=== PATIENT | female | born 1950 | race Caucasian/White ===

== ENCOUNTER 2018-02-10 09:55 | Day surgery (SDC) | payer OTHER ==
[2018-02-10] MEDS ORDERED: diphenhydrAMINE 25 MG CAP PO SCH (10:30)
[2018-02-10] MEDS ORDERED: Acetaminophen 500 MG TAB PO SCH (10:30)
[2018-02-10 13:57] LABS: Hemoglobin 9.8 g/dL (12.0-16.0)
[2018-02-10 16:57] VITALS: TEMP 98
[2018-02-10 17:00] VITALS: BP 170/72
== END 2018-02-10 17:00 | disposition home or self-care (01) ==
LOC: ONC/OP 09:55
PROVIDERS: ATTEND Internal Medicine Hematology & Oncology
DX: D64.9 Anemia, unspecified (principal); D69.6 Thrombocytopenia, unspecified; Z88.8 Allergy status to other drugs, medicaments and biological substances
CPT/HCPCS: 36430; 85014; 85018; 86850; 86900; 86901; P9016

== ENCOUNTER 2018-06-29 19:30 | Outpatient (CLI) | payer OTHER, MEDICARE | END 2018-06-29 19:31 | disposition home or self-care (01) | LOC: SLEEPLAB 19:30 | PROVIDERS: ATTEND Internal Medicine | DX: G47.10 Hypersomnia, unspecified (principal); R53.83 Other fatigue; G47.00 Insomnia, unspecified; R06.83 Snoring; I10 Essential (primary) hypertension; G47.61 Periodic limb movement disorder; R09.02 Hypoxemia; Z68.23 Body mass index [BMI] 23.0-23.9, adult | CPT/HCPCS: 95810 ==

== ENCOUNTER 2018-09-17 12:28 | Inpatient (IN) | payer MEDICARE, OTHER ==
--- NOTE | 2018-09-17 13:28 | CT ---
FCT Brain WO Con History:Fall with head injury, loss of balance Comparison: 06/23/2008 study Findings: There is generalized ventricular and sulcal prominence. There are encephalomalacia changes in the right frontal lobe. There are no signs of intracerebral hemorrhage or extra-axial fluid collec tions. The mastoid air cells are clear there is left sphenoid air cell opacification. A posterior sca lp hematoma and laceration are noted. Impression: No acute intracranial abnormalities.
--- NOTE | 2018-09-17 13:47 | CT ---
CT CERVICAL SPINE: Date: 09/17/18 PROVIDED CLINICAL HISTORY: Fall. FINDINGS: Comparison with 06/23/08. There is reversal of the normal cervical lordosis. There is no evidence for fracture or traumatic sub luxation. Advanced multilevel cervical degenerative changes are seen. No prevertebral soft tissue swe lling apparent. There is a medialized course of both common carotid arteries, with a focal area of ca lcified plaque that may produce a severe stenosis involving the distal left common carotid artery. Th e visualized lung apices appear clear. IMPRESSION: 1. No evidence for fracture or traumatic subluxation. 2. Carotid calcification including potentially severe left common carotid stenosis. Consider correla tion with nonemergent carotid ultrasound. POS: OFF
[2018-09-17 13:58] LABS: #Basophils 0.1 thou/uL (0.0-0.2); #Eosinphils 0.2 thou/uL (0.0-0.7); #Lymphocytes 1.2 thou/uL (1.20-3.40); #Monocytes 0.8 thou/uL (0.11-0.59); #Neutrophils 6.3 thou/uL (1.40-6.50); %Basophils 0.7 % (0.0-1.0); %Eosinophils 1.9 % (0.0-10.0); %Lymphocytes 14.2 % (21.0-51.0); %Monocytes 8.9 % (0.0-10.0); %Neutrophils 74.3 % (42.0-75.0); Hemoglobin 8.2 g/dL (12.0-16.0); Mean Corpuscular HGB CONC 32.7 g/dL (32.0-36.0); Mean Corpuscular Hemoglobin 29.3 pg (27.0-31.0); Mean Corpuscular Volume 89.5 fL (78.0-98.0); Mean Platelet Volume 7.1 fL (7.4-10.4); Platelet Count 288 thou/uL (130-400); RBC Distribution Width 13.2 % (11.5-14.5); Red Blood Cell (RBC) Count 2.78 mill/uL (4.20-5.40); White Blood Cell (WBC) Count 8.5 thou/uL (4.8-10.8)
[2018-09-17 14:10] LABS: Bilirubin Negative (Negative); Blood, Urine Negative (Negative); Clarity CLEAR (Clear); Glucose, Urine (Dipstick) 100 mg/dL (Negative); Leukocyte Negative (Negative); Nitrite Negative (Negative); Protein, Urine (Dipstick) 300 mg/dL (Neg-Trace); Specific Gravity, Urine 1.013 (1.002-1.036); Urobilinogen 0.2 mg/dL (0.2-1.0)
[2018-09-17 14:12] LABS: Bacteria/HPF None Seen HPF (None Seen); Hyaline Casts/LPF 4-6 HYALINE CAST LPF (0-3 Hyaline); Pathc Cast-AUWi Flag 0.81 (0-2.49); RBC/HPF 0-3 HPF (0-3); Squamous Epithelial 0-3 HPF (0-3); WBC/HPF 0-3 HPF (0-3)
[2018-09-17 14:17] LABS: ALT (SGPT) Less than 7 U/L (8-55); AST (SGOT) 10 U/L (5-34); Albumin 3.2 g/dL (3.4-4.8); Alkaline Phosphatase 107 U/L (40-150); Anion Gap 13 mmol/L (10-20); BUN (Urea Nitrogen) 54 mg/dL (9.8-20.1); Bilirubin, Total 0.3 mg/dL (0.2-1.2); Calc. Creatinine Clearance 0 mL/min (70-130); Calcium 8.9 mg/dL (7.8-10.44); Carbon Dioxide 27 mmol/L (23-31); Chloride 101 mmol/L (98-107); Estimated GFR-MDRD 14; Globulin 2.7 g/dL (2.4-3.5); Glucose 124 mg/dL (80-115); Potassium 4.5 mmol/L (3.5-5.1); Protein, Total 5.9 g/dL (6.0-8.3); Sodium 136 mmol/L (136-145)
[2018-09-17] MEDS ORDERED: Lidocaine 1% w/Epinephrine 1:100K 20 ML VIAL ONE (14:30)
[2018-09-17] MEDS ORDERED: Ondansetron ODT 4 MG TAB PO PRN (16:23)
[2018-09-17] MEDS ORDERED: Senokot S 8.6-50 MG TAB PO PRN (16:23)
[2018-09-17] MEDS ORDERED: Acetaminophen 650 MG Suppository PR PRN (16:23)
[2018-09-17] MEDS ORDERED: Acetaminophen 325 MG TAB PO PRN (16:23)
[2018-09-17] MEDS ORDERED: Adacel (T-DAP) 0.5 ML SYRINGE ONE (16:25)
[2018-09-17 17:38] LABS: Lactic Acid 0.7 mmol/L (0.5-2.2)
[2018-09-17 18:03] LABS: Thyroid Stimulating Hormone 2.7488 uIU/mL (0.35-4.94)
[2018-09-17 18:27] VITALS: BMI 22.0
--- NOTE | 2018-09-17 19:05 | ULT ---
FBILATERAL CAROTID DUPLEX ULTRASOUND: HISTORY: Syncope TECHNIQUE: Grayscale, color-flow and spectral Doppler ultrasound imaging of the extracranial carotid artery syst ems was performed bilaterally. FINDINGS: Severe plaque formation. The peak systolic velocity in the right ICA measures 135 cm/s. The peak systolic velocity in the left ICA measures 205 cm/s. Vertebral flow: Vertebral arteries are not reliably visualized for comment . IMPRESSION: Moderate (50-69%) stenosis of Both ICAs.
[2018-09-17] MEDS: Famotidine 20 MG TAB PO SCH (20:38)
[2018-09-17 21:58] LABS: Creatinine, Urine 29.74 mg/dL (47-110)
[2018-09-18 07:11] LABS: #Eosinphils 0.2 thou/uL (0.0-0.7); #Lymphocytes 1.4 thou/uL (1.20-3.40); #Monocytes 0.7 thou/uL (0.11-0.59); #Neutrophils 3.8 thou/uL (1.40-6.50); %Basophils 0.7 % (0.0-1.0); %Eosinophils 3.2 % (0.0-10.0); %Lymphocytes 22.8 % (21.0-51.0); %Monocytes 11.7 % (0.0-10.0); %Neutrophils 61.5 % (42.0-75.0); Hemoglobin 8.2 g/dL (12.0-16.0); Mean Corpuscular HGB CONC 31.9 g/dL (32.0-36.0); Mean Corpuscular Hemoglobin 28.7 pg (27.0-31.0); Mean Corpuscular Volume 89.9 fL (78.0-98.0); Mean Platelet Volume 7.5 fL (7.4-10.4); Platelet Count 289 thou/uL (130-400); Red Blood Cell (RBC) Count 2.85 mill/uL (4.20-5.40); White Blood Cell (WBC) Count 6.2 thou/uL (4.8-10.8)
[2018-09-18 07:36] LABS: Anion Gap 9 mmol/L (10-20); BUN (Urea Nitrogen) 48 mg/dL (9.8-20.1); Calc. Creatinine Clearance 16 mL/min (70-130); Calcium 8.8 mg/dL (7.8-10.44); Carbon Dioxide 29 mmol/L (23-31); Cardiac Risk 5.5 (Less than 4.5); Chloride 102 mmol/L (98-107); Cholesterol 237 mg/dl (< 200 Desired); Estimated GFR-MDRD 15; Glucose 123 mg/dL (80-115); HDL Cholesterol 43 mg/dL (>60 Neg Risk); LDL Cholesterol, Calculated 152 mg/dL; Potassium 4.1 mmol/L (3.5-5.1); Sodium 136 mmol/L (136-145); Triglycerides 212 mg/dL (Less than 150)
--- NOTE | 2018-09-18 08:21 | ULT ---
FUltrasound renal: HISTORY: Acute kidney disease superimposed on chronic kidney disease in 68-year-old female FINDINGS: Right kidney is 9 x 4 x 3.5 cm Left kidney is 12.5 x 5.5 x 5 cm. Bilateral renal parenchyma is diffusely thin. No hydronephrosis. Multiple shadowing echogenic foci sc attered in both kidneys, probably representing calculi. 1.5 x 0.5 cm probable cyst at left renal sinu s. Normal appearance of urinary bladder with bilateral ureteral jets. IMPRESSION: 1. No hydronephrosis. 2. Evidence for long-standing chronic kidney disease. 3. Evidence for probable bilateral nephrolithiasis.
[2018-09-18] MEDS ORDERED: Promethazine 25 MG TAB PO PRN (10:00)
[2018-09-18] MEDS ORDERED: Nitroglycerin 0.4 MG TAB (25 Tab Bottle) SL PRN (10:00)
[2018-09-18] MEDS: Polyethylene Glycol 3350 17 GM Packet PO SCH (10:22)
[2018-09-18] MEDS: Aspirin 81 mg Enteric Coated Tablet PO SCH (10:22)
--- NOTE | 2018-09-18 12:33 | MRI ---
FMRI of brain noncontrast: 09/18/2018 HISTORY: 68-year-old female with syncope, left hand weakness, dysarthria, and head trauma COMPARISON: No prior MRIs of the brain FINDINGS: Most of the images are degraded by patient motion. At the posterior lateral aspect of the left tempor al lobe at the temporoparietal junction, there is a subtle, approximately 2 x 2.5 cm region of mildly increased signal intensity heterogeneously on the diffusion-weighted sequence. It does not correspon d to T2 shine through on the ADC map. The FLAIR sequence, there is a subtle finding of local sulcal e ffacement in that location with slightly hyperintense signal. No associated hemorrhage in that locati on. In the contralateral right cerebral hemisphere, there is 1 moderately large or several moderate sized regions of encephalomalacia and gliosis from prior insults, which involve supra sylvian right latera l frontal lobe, posterior lateral right temporal lobe, and adjacent portion of right parietal lobe. T here is hemosiderin staining in this location representing prior hemorrhagic conversion. There is also a thin long strip of encephalomalacia and gliosis involving the right caudate nucleus. Tiny old lacunar infarcts, a few, in the bilateral basal ganglia. No obstructive hydrocephalus, mass effect, midline shift, or definite acute infarction. No acute hemo rrhage. On the FLAIR sequence, there is a thin layer of diffusely hyperintense T2 signal throughout the subdu ral spaces or involving the dura itself. IMPRESSION: 1. A subtle finding of slight signal abnormality and mild effacement of sulcal markings, at the left parieto-occipital junction brain parenchyma. Unfortunately, the patient has acute on chronic renal di sease, and gadolinium-based contrast agent probably should not be given. Etiology of this is uncertai n. Possibilities include cerebritis and neoplasm. Recommend follow-up noncontrast MRI of the brain in 3 months, or sooner if neurologic status changes. 2. One large or a few moderate sized regions of encephalomalacia and gliosis in the right cerebral he misphere consistent with old infarction in the right middle cerebral artery territory. Evidence of pr ior hemorrhagic conversion. 3. 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 4. Thin layer of circumferentially diffuse hyperintense signal throughout the supratentorial subdural spaces, or alternatively involving the entire supratentorial dura itself. Etiology is uncertain. Pos sibilities include meningitis versus very thin subdural hematoma. The recent CT was negative. Recomme nd another noncontrast CT now to be sure that this is not a newly developed thin subdural hematoma.
[2018-09-18] MEDS ORDERED: Dextrose 50% Abboject 50 ML SYRINGE SLOW IVP PRN (13:57)
[2018-09-18] MEDS ORDERED: HumaLOG 300 UNITS/3 ML VIAL SC PRN (13:57)
[2018-09-18] MEDS ORDERED: Dextrose 5% in Water 1,000 ML IV PRN (13:57)
[2018-09-18] MEDS: Furosemide 40 MG TAB PO SCH (14:29)
[2018-09-18] MEDS: HumaLOG 300 UNITS/3 ML VIAL SC PRN ×2 (14:44→17:05)
--- NOTE | 2018-09-18 15:03 | CON ---
DATE OF CONSULTATION: 09/18/2018 CONSULTING PHYSICIAN: Hospitalist Services. IMPRESSION: Syncopal episode, likely cardiogenic in origin. PLAN: Follow up with Cardiology. HISTORY OF PRESENT ILLNESS: Ms. Pacheco is a 68-year-old white female with a known history of hypertension, congestive heart failure with ejection fraction of around 16%, and a prior stroke in the right frontal region with mild left hand weakness, who presented after syncopal episode. She was witnessed to have a sudden onset of a syncope. She apparently collapsed to the floor for matter of a few seconds. She was awoken by her caregiver. There was no associated seizure activity. When she awoke, there were no focal neurologic symptoms associated with it. She denies any chest pain or shortness of breath. She does not recall any palpitations or any prodromal symptoms. She reports a distant history of a stroke, but has not had any problems in quite some time. She was admitted for further evaluation. Her CT scan of the brain showed old right frontal area of infarct. EKG shows sinus rhythm with occasional PVCs. Laboratory studies were unremarkable. PAST MEDICAL HISTORY: As listed above. ALLERGIES: MULTIPLE PER CHART. MEDICATIONS: Medication list was reviewed. SOCIAL HISTORY: No tobacco or alcohol use. REVIEW OF SYSTEMS: A 10-system review of systems is otherwise negative. PHYSICAL EXAMINATION: GENERAL: She is a well-nourished elderly lady, in no acute distress. VITAL SIGNS: Have been stable. She is afebrile. HEENT: Pupils are equal and reactive. Conjunctivae clear. Oropharynx clear. NECK: Supple. No lymphadenopathy. EXTREMITIES: No cyanosis, clubbing, or edema. NEUROLOGIC: She is alert and appropriate. Her speech is fluent and clear. Cranial nerves 2 through 12 are intact. No focal deficits were present other than diminished rapid alternating movements in the left hand. Sensation was intact to touch. SUMMARY: This is a 68-year-old woman with a known history of congestive heart failure with very poor ejection fraction, who presented with a syncopal episode. There was no associated seizure-like activity or focal neurologic symptoms. Further cardiac workup would appear appropriate. Job ID: [id number]
--- NOTE | 2018-09-18 15:14 | CT ---
FCT brain noncontrast: 09/18/2018 2:57 PM HISTORY: 68-year-old female status post head trauma. Abnormal appearance of dura noncontrast MRI of the brain. Rule out thin subdural hematoma FINDINGS: There is no evidence of subdural or epidural hematoma on this repeat CT. Again noted are the patchy, moderate sized regions of encephalomalacia and gliosis in the right cerebral hemisphere. Small old la cunar infarction of right corpora striata. Posterior upper scalp hematoma now has skin chanel. No in terval change since the CT from yesterday otherwise. IMPRESSION: 1. No acute subdural hematoma. 2. The findings on the noncontrast MRI may or may not represent a meningitis. Recommend follow-up MRI of the brain noncontrast in 3 months, or sooner if there is change in neurolo gical status. 3. Moderate sized regions of encephalomalacia and gliosis in the right cerebral hemisphere presenting old infarctions. .
--- NOTE | 2018-09-18 16:53 | PDOC.PN ---
- Subjective Encounter Start Date: 09/18/18 Encounter Start Time: 16:50 Patient lying in bed with oxygen in place. She reports feeling better today. She reports syncopal episode at home and remembers feeling dizzy, but does not remember falling down. She denies chest pain, shortness of breath, palpitations or abdominal pain. Nephrology following for acute on chronic kidney disease, vascular surgery consulted for carotid stenosis. MRI showed possible subdural hematoma, however repeat CT confirmed no subdural hematoma, but did recommend MRI in 3 months for other findings. - Objective Resuscitation Status - Order Detail: 09/17/18 16:23 Resuscitation Status Routine Co-Sign Provider: Resuscitation Status: FULL: Full Resuscitation Discussed with: Patient Additional comments: Surrogate Decision maker: Rajeev HOGUE Reviewed: Yes Vital Signs & Weight: Vital Signs (12 hours) Temp Pulse Pulse Pulse Resp BP BP 09/18/18 15:39 98.8 F 74 16 09/18/18 12:00 98.2 F 78 20 09/18/18 10:55 80 82 140/60 137/63 09/18/18 07:55 98 F 76 16 BP BP Pulse Ox 09/18/18 15:39 165/63 H 99 09/18/18 12:00 150/63 H 100 09/18/18 10:55 09/18/18 07:55 169/73 H 98 Weight Weight 128 lb 7 oz I&O: 09/17/18 09/18/18 09/19/18 06:59 06:59 06:59 Intake Total 350 Output Total 1100 Balance -750 Result Diagrams: 09/18/18 06:39 09/18/18 06:39 Additional Labs: Accuchecks 09/18/18 09/18/18 09/17/18 10:54 06:10 20:38 POC Glucose 257 H 145 H 157 H Radiology Reviewed by me: Yes Phys Exam - Physical Examination Constitutional: NAD HEENT: moist MMs, oral pharynx no lesions Neck: supple Respiratory: no wheezing, no rales Cardiovascular: RRR, no significant murmur Gastrointestinal: soft, positive bowel sounds Musculoskeletal: no edema, pulses present Neurological: non-focal, moves all 4 limbs Psychiatric: normal affect, A&O x 3 Skin: no rash, cap refill <2 seconds Dx/Plan (1) Acute on chronic systolic (congestive) heart failure Code(s): I50.23 - ACUTE ON CHRONIC SYSTOLIC (CONGESTIVE) HEART FAILURE Status : Acute (2) COPD (chronic obstructive pulmonary disease) Status: Acute (3) Syncope and collapse Code(s): R55 - SYNCOPE AND COLLAPSE Status: Acute (4) Carotid stenosis Code(s): I65.29 - OCCLUSION AND STENOSIS OF UNSPECIFIED CAROTID ARTERY Status : Acute (5) Chronic respiratory failure Code(s): J96.10 - CHRONIC RESPIRATORY FAILURE, UNSP W HYPOXIA OR HYPERCAPNIA Status: Acute (6) Chronic kidney disease (CKD) Code(s): N18.9 - CHRONIC KIDNEY DISEASE, UNSPECIFIED Status: Acute - Plan cont current plan of care, PT/OT * MRI and CT results discussed with patient along with carotid doppler results * Due to carotid stenosis, Dr Syed will be consulted * Continue medical management * Dr High believes symptoms cardiogenic in nature * Await Echo results * Possible consult to cardiology pending echo results * Continue home medications at this time * Patient transmitter engineer Dr Layton is consulted * Hold nephrotoxic meds * Repeat CBC and BMP in am * Discussed that recommendations for MRI in 3 months as outpatient
[2018-09-18] MEDS ORDERED: Non-Formulary Item 1 EACH (Insulin Detemir 100 Units/Ml [Levemir] 15 UNITS) SQ SCH (21:00)
[2018-09-18] MEDS ORDERED: Atorvastatin Calcium 40 MG TAB PO SCH (21:00)
[2018-09-18] MEDS: Famotidine 20 MG TAB PO SCH (21:09)
[2018-09-18] MEDS: Carvedilol 25 MG TAB PO SCH (21:09)
[2018-09-18] MEDS: Insulin Glargine 15 UNITS in Pre-Filled Syringe 1 EACH SC SCH (21:11)
[2018-09-18] MEDS: traMADol HCl 50 MG TAB PO PRN (21:12)
--- NOTE | 2018-09-19 01:01 | CON ---
DATE OF CONSULTATION: 09/18/2018 CONSULTING PHYSICIAN: Dr. Diaz. REASON FOR CONSULT: Acute kidney injury. REASON FOR ADMISSION: Syncope. HISTORY OF PRESENT ILLNESS: A 68-year-old female with a history of chronic kidney disease followed with Dr. Layton, type 2 diabetes, COPD, congestive heart failure, came to the hospital with dizziness and found to have syncope and carotid stenosis. The patient has had neurological and cardiovascular evaluation. The patient does have CKD stage 4, was found to have elevated creatinine of 3.3, on admission 3.1. The patient also has been having swelling and she was recently discharged from the [facility]. No fever or chills. No nausea or vomiting. No diarrhea. No chest pain or palpitation. PAST MEDICAL HISTORY: Positive for CKD, congestive heart failure, type 2 diabetes, COPD. PAST SURGICAL HISTORY: No surgeries. HOME MEDICATIONS: Include, 1. Amlodipine. 2. Atorvastatin. 3. Furosemide. 4. Levothyroxine. 5. Lisinopril. 6. Tramadol. 7. Cholecalciferol. ALLERGIES: TO ALBUMIN, DIAZEPAM, OXYCODONE, SIMVASTATIN. SOCIAL HISTORY: No smoking, alcohol, or illicit drug abuse. FAMILY HISTORY: No history of kidney disease. REVIEW OF SYSTEMS: CONSTITUTIONAL: Negative for weight loss or gain, ability to conduct usual activities. SKIN: Negative for rash, itching. EYES: Negative for double vision, pain. ENT/MOUTH: Negative for nose bleeding, neck stiffness, pain, tenderness. CARDIOVASCULAR: Negative for palpitations, dyspnea on exertion, orthopnea. RESPIRATORY: Negative for shortness of breath, wheezing, cough, hemoptysis, fever or night sweats. GASTROINTESTINAL: Negative for poor appetite, abdominal pain, heartburn, nausea, vomiting, constipation, or diarrhea. GENITOURINARY: Negative for urgency, frequency, dysuria, nocturia. MUSCULOSKELETAL: Negative for pain, swelling. NEUROLOGIC/PSYCHIATRIC: Negative for anxiety, depression. ALLERGY/IMMUNOLOGIC: Negative for skin rash, bleeding tendency. PHYSICAL EXAMINATION: GENERAL: This is a well-built female in no apparent distress. VITAL SIGNS: Temperature 98.8, pulse 74, respirations 16, blood pressure 150/60. HEENT: Atraumatic and normocephalic. Oral mucosa is moist. NECK: Supple. CV: S1 and S2. Rate and rhythm regular. RESPIRATORY: Clear. GASTROINTESTINAL: Abdomen is soft. MUSCULOSKELETAL: 1+ edema. DERMATOLOGIC: No skin rash. Neurologic: Alert and awake. PSYCHIATRIC: Normal mood and affect. LABORATORY DATA: Potassium 4.8, BUN is 48, creatinine is 3.1, hemoglobin is 8.2. ASSESSMENT AND PLAN: 1. Acute kidney injury on chronic kidney stage 4, seems slightly better. The patient on Lasix at home and currently on Lasix here. Cautious use of Lasix and monitor renal function closely. No acute indication for dialysis. 2. Anemia of chronic disease. We will check iron studies and if adequate, we will give Epogen. 3. Vitamin D deficiency. Recommend vitamin D. Secondary hyperparathyroidism. Consider calcitriol in the future. We will recommend vitamin D for now. 4. Edema, controlled. 5. Hypertension, stable. 6. Proteinuria. 7. History of diabetes. 8. Acute indication for dialysis might need in the near future. We will continue to monitor. Continue Lasix. The patient is making urine and fluid status is controlled. We will continue to follow. Avoid nephrotoxins. Continue close monitoring. Thank you for the consult. Job ID: [id number]
--- NOTE | 2018-09-19 01:22 | CON ---
DATE OF CONSULTATION: HISTORY OF PRESENT ILLNESS: This is a 68-year-old female who was seen previously for severe peripheral vascular disease. She states that she was at home by herself where she experienced severe dizziness, but states she did not lose consciousness. She felt badly and was brought to the hospital. She has had fairly extensive workup here which included an MRI of the brain and CT of the brain, both showing old right hemispheric infarct. Carotid ultrasound showing peak systolic velocity on the left of 204 cm/second. She evidently has severe cardiomyopathy with an ejection fraction of less than 20%, for which she sees Dr. Teixeira. She was previously noted to have inoperable coronary artery disease in 2007 with a 15% ejection fraction and severe mitral regurgitation. PAST MEDICAL HISTORY: Includes diabetes mellitus, hypertension, dyslipidemia, chronic kidney disease, and a long smoking history until about 3 years ago. PAST SURGICAL HISTORY: Includes a right common femoral endarterectomy and stenting of her distal aorta by myself in 2017 for severe ulcerations in her right leg. During that time, she was evaluated and found to have a 90% stenosis at the origin of the innominate artery and what was felt to be a 90% string sign of the left internal carotid artery and a 30% right carotid stenosis. PHYSICAL EXAMINATION: GENERAL: She is an elderly, ill-appearing lady, in no distress. NECK: Bilateral carotid bruits. CARDIAC: Regular rate and rhythm with a systolic murmur at the right upper sternal border and clear lung larson anteriorly. ABDOMEN: Soft and nontender. EXTREMITIES: She has a palpable right femoral pulse and no other palpable pulses in her lower extremities. IMPRESSION: At this time, previous evaluation has shown a string sign of the left external carotid artery, which was felt to be inoperable lesion. The ultrasound at this time is suggestive of less than 70% stenosis. However, we do have documentation of a much greater stenosis, although once again, inoperable. I have recommended no intervention at this time, and she is already on medical management, being followed by Dr. Teixeira. She has done surprisingly well with inoperable coronary artery disease and ejection fraction less than 20% diagnosed 12 years ago. Job ID: [id number]
[2018-09-19 06:24] LABS: Iron 28 ug/dL (50-170); Iron Binding Capacity, Total 180 mcg/dL (265-497)
[2018-09-19] MEDS ORDERED: Atorvastatin Calcium 40 MG TAB PO SCH (07:38)
[2018-09-19 08:06] LABS: #Eosinphils 0.2 thou/uL (0.0-0.7); #Lymphocytes 1.3 thou/uL (1.20-3.40); #Monocytes 0.6 thou/uL (0.11-0.59); #Neutrophils 3.7 thou/uL (1.40-6.50); %Basophils 0.5 % (0.0-1.0); %Eosinophils 3.4 % (0.0-10.0); %Lymphocytes 22.1 % (21.0-51.0); %Monocytes 10.6 % (0.0-10.0); %Neutrophils 63.4 % (42.0-75.0); Hemoglobin 7.4 g/dL (12.0-16.0); Mean Corpuscular HGB CONC 32.8 g/dL (32.0-36.0); Mean Corpuscular Hemoglobin 28.8 pg (27.0-31.0); Mean Corpuscular Volume 87.9 fL (78.0-98.0); Mean Platelet Volume 7.3 fL (7.4-10.4); Platelet Count 265 thou/uL (130-400); RBC Distribution Width 12.9 % (11.5-14.5); Red Blood Cell (RBC) Count 2.58 mill/uL (4.20-5.40); White Blood Cell (WBC) Count 5.8 thou/uL (4.8-10.8)
[2018-09-19 08:13] LABS: Hemoglobin A1c 5.1 % (4.0-6.0)
[2018-09-19 08:36] LABS: Anion Gap 12 mmol/L (10-20); BUN (Urea Nitrogen) 48 mg/dL (9.8-20.1); Calc. Creatinine Clearance 15 mL/min (70-130); Calcium 8.5 mg/dL (7.8-10.44); Carbon Dioxide 25 mmol/L (23-31); Chloride 105 mmol/L (98-107); Estimated GFR-MDRD 14; Glucose 114 mg/dL (80-115); Potassium 4.5 mmol/L (3.5-5.1); Sodium 137 mmol/L (136-145)
[2018-09-19] MEDS: Insulin Glargine 15 UNITS in Pre-Filled Syringe 1 EACH SC SCH ×2 (09:38→21:28)
[2018-09-19] MEDS: Fenofibrate 48 MG TAB PO SCH (09:39)
[2018-09-19] MEDS: Carvedilol 25 MG TAB PO SCH ×2 (09:40→21:25)
[2018-09-19] MEDS: Aspirin 81 mg Enteric Coated Tablet PO SCH (09:40)
[2018-09-19] MEDS: Furosemide 40 MG TAB PO SCH ×2 (09:40→14:52)
[2018-09-19] MEDS: Amlodipine 10 MG TAB PO SCH (09:40)
[2018-09-19] MEDS: Polyethylene Glycol 3350 17 GM Packet PO SCH (09:42)
[2018-09-19] MEDS ORDERED: EPOETIN ALFA-EPBX (ESRD) 10,000 UNIT/ML VIAL SC SCH (12:00)
--- NOTE | 2018-09-19 13:20 | PRG ---
DATE OF SERVICE: 09/19/2018 SUBJECTIVE: Patient was seen and examined at bedside and overnight events noted. Patient denies any shortness of breath or chest pain or palpitation. No history of nausea or vomiting or diarrhea or fever or chills or cramps. OBJECTIVE: GENERAL: This is a well-build female, in no apparent distress. VITAL SIGNS: Temperature 99.0. Heart rate 70. Respiratory rate 16. Blood pressure 119/57. HEENT: Atraumatic, normocephalic. Oral mucosa is moist NECK: Supple. CARDIOVASCULAR: S1, S2 heard. Rate and rhythm regular. RESPIRATORY: Clear to auscultation. GASTROINTESTINAL: Abdomen is soft. MUSCULOSKELETAL: No tenderness. No edema. DERMATOLOGIC: No skin rash. NEUROLOGIC: Alert and awake and oriented X3. No focal neurologic deficits. Moving all the extremities. PSYCHIATRIC: Mood and affect normal. LABORATORY DATA: Hemoglobin is 7.4, potassium is 4.5, BUN is 48, creatinine is 3.2. ASSESSMENT AND PLAN: 1. Chronic kidney stage 5. No acute indication for dialysis. Monitor nephrotoxins and closely monitor. 2. Anemia of chronic disease with iron deficiency. We will add iron pills and give one dose of Epogen. 3. Vitamin D deficiency. Continue on vitamin D, secondary to hyperparathyroidism. 4. Edema, controlled. 5. Hypertension, stable. 6. Proteinuria. 7. Diabetes. 8. No acute indication for dialysis, would need in the near future. The patient does not want to start planning for dialysis at this point. We will continue close monitoring. Avoid nephrotoxins. Job ID: [id number]
--- NOTE | 2018-09-19 15:46 | PDOC.PN ---
- Subjective Encounter Start Date: 09/19/18 Encounter Start Time: 15:41 Patient lying in bed, she reports feeling better. She denies chest pain, palpitations, shortness of breath or abdominal pain. Nephrology following and determined no indications for dialysis at this time. - Objective Resuscitation Status - Order Detail: 09/17/18 16:23 Resuscitation Status Routine Co-Sign Provider: Resuscitation Status: FULL: Full Resuscitation Discussed with: Patient Additional comments: Surrogate Decision maker: Rajeev HOGUE Reviewed: Yes Vital Signs & Weight: Vital Signs (12 hours) Temp Pulse Resp BP BP BP Pulse Ox 09/19/18 11:38 98.5 F 70 16 121/58 L 93 L 09/19/18 09:40 73 129/59 L 09/19/18 08:00 94 L 09/19/18 07:48 98 F 70 16 119/57 L 94 L 09/19/18 04:16 98.2 F 75 16 167/70 H 99 Weight Weight 128 lb 7 oz I&O: 09/18/18 09/19/18 09/20/18 06:59 06:59 06:59 Intake Total 350 1440 600 Output Total 1100 1050 900 Balance -750 390 -300 Result Diagrams: 09/19/18 07:40 09/19/18 07:40 Additional Labs: Accuchecks 09/19/18 09/19/18 09/18/18 10:40 05:54 21:03 POC Glucose 114 H 137 H 208 H 09/18/18 16:41 POC Glucose 256 H Radiology Reviewed by me: Yes Phys Exam - Physical Examination Constitutional: NAD HEENT: moist MMs, oral pharynx no lesions Neck: no nodes, supple Respiratory: no wheezing, clear to auscultation bilateral Cardiovascular: RRR, no significant murmur Gastrointestinal: soft, positive bowel sounds Musculoskeletal: no edema, pulses present Neurological: non-focal, moves all 4 limbs Psychiatric: normal affect, A&O x 3 Skin: no rash, cap refill <2 seconds Dx/Plan (1) Acute on chronic systolic (congestive) heart failure Code(s): I50.23 - ACUTE ON CHRONIC SYSTOLIC (CONGESTIVE) HEART FAILURE Status : Acute (2) COPD (chronic obstructive pulmonary disease) Status: Acute (3) Syncope and collapse Code(s): R55 - SYNCOPE AND COLLAPSE Status: Acute (4) Carotid stenosis Code(s): I65.29 - OCCLUSION AND STENOSIS OF UNSPECIFIED CAROTID ARTERY Status : Acute (5) Chronic respiratory failure Code(s): J96.10 - CHRONIC RESPIRATORY FAILURE, UNSP W HYPOXIA OR HYPERCAPNIA Status: Acute (6) Chronic kidney disease (CKD) Code(s): N18.9 - CHRONIC KIDNEY DISEASE, UNSPECIFIED Status: Acute - Plan cont current plan of care * Continue with medical management, Statin increased * Nephrology following and recommend monitoring BMP, no indications for HD at this time * Continue supplementation for iron and vitamin D * Added Tricor * Continue other home medications, hold nephrotoxins * Patient not a surgical candidate for carotid stenosis
[2018-09-19] MEDS: HumaLOG 300 UNITS/3 ML VIAL SC PRN (17:46)
[2018-09-19] MEDS: Famotidine 20 MG TAB PO SCH (21:25)
[2018-09-19] MEDS: Atorvastatin Calcium 40 MG TAB PO SCH (21:25)
[2018-09-19] MEDS: traMADol HCl 50 MG TAB PO PRN (21:26)
[2018-09-20 06:35] LABS: #Eosinphils 0.2 thou/uL (0.0-0.7); #Lymphocytes 1.5 thou/uL (1.20-3.40); #Monocytes 0.6 thou/uL (0.11-0.59); #Neutrophils 4.1 thou/uL (1.40-6.50); %Basophils 0.4 % (0.0-1.0); %Eosinophils 3.2 % (0.0-10.0); %Lymphocytes 22.7 % (21.0-51.0); %Neutrophils 63.8 % (42.0-75.0); Hemoglobin 7.8 g/dL (12.0-16.0); Mean Corpuscular HGB CONC 31.6 g/dL (32.0-36.0); Mean Corpuscular Hemoglobin 28.5 pg (27.0-31.0); Mean Platelet Volume 7.3 fL (7.4-10.4); Platelet Count 279 thou/uL (130-400); RBC Distribution Width 13.2 % (11.5-14.5); Red Blood Cell (RBC) Count 2.75 mill/uL (4.20-5.40); White Blood Cell (WBC) Count 6.5 thou/uL (4.8-10.8)
[2018-09-20 06:52] LABS: Anion Gap 10 mmol/L (10-20); BUN (Urea Nitrogen) 47 mg/dL (9.8-20.1); Calc. Creatinine Clearance 14 mL/min (70-130); Calcium 8.9 mg/dL (7.8-10.44); Carbon Dioxide 27 mmol/L (23-31); Chloride 106 mmol/L (98-107); Estimated GFR-MDRD 13; Glucose 83 mg/dL (80-115); Potassium 4.7 mmol/L (3.5-5.1); Sodium 138 mmol/L (136-145)
--- NOTE | 2018-09-20 07:24 | HP ---
CHIEF COMPLAINT: Fainting episode with head injury. HISTORY OF PRESENT ILLNESS: Ms. Pacheco is a 68-year-old woman, presenting to the ER after having a syncopal episode. The patient states she was sitting at her dining room table, stood up, and recalls falling. She denies any loss of consciousness. Denies having any preceding symptoms such as dizziness, chest pain, or headaches. Denies experiencing any shortness of breath. She banged the back of her head on the dining room table. She sustained a laceration to the occipital region with no bony deformity or skull fractures noted on CT head. No intracranial hemorrhage or abnormalities. She has had 5 chanel placed. She continues to deny any headaches or feeling unwell. She states she has been in her usual state of health, though she has been battling with decreased oral intake for the last couple of months. She also suffers from constipation. She states both are being managed with medications and she is under the care of Dr. Puente at the [facility], who she saw recently. The patient reports having history of a stroke in the past and has residual weakness and contractures of the left forefinger. She also has residual facial droop, but otherwise has no residual abnormalities or neuro deficits. Denies having any weakness or numbness on either side of her body. Denies having any speech changes or vision disturbances. No slurred speech. Again, at this time she feels well in herself and is without complaints. REVIEW OF SYSTEMS: The patient denies having any recent fevers, chills, or sweats. Denies having any cough or hemoptysis. Denies any abdominal pain or cramping. She last moved her bowels yesterday. Denies any abdominal pain. No urinary symptoms such as dysuria, hematuria, but does report urinary frequency, which is chronic. Denies having any chest pain. All other review of systems are negative. PAST MEDICAL HISTORY: 1. CHF. 2. Coronary artery disease. 3. COPD. 4. CKD. 5. Hypertension. 6. Hyperlipidemia. 7. Type 2 diabetes. 8. History of stroke in 2008. 9. Last carotid Doppler done in November 2014 showed greater than 70% stenosis of the left ICA and less than 50% stenosis of the right ICA with increased ECA velocity on the left. Cardiac catheterization, November 2014, showed moderate left ventricular function with an EF of 35% to 40%, mitral regurgitation and diffuse severe three-vessel coronary artery disease. 10. The patient consulted for CABG in the past; however, due to diffuse atherosclerotic disease of aorta and bilateral carotid stenosis, felt to be too high risk for surgery. Stenting was discussed at that time. 11. Hypothyroidism. PAST SURGICAL HISTORY: None. ALLERGIES: VALIUM, OXYCODONE, PNEUMOCOCCAL VACCINE, HUMAN ALBUMIN, AND DIAZEPAM. CURRENT MEDICATIONS: 1. Amlodipine. 2. Atorvastatin. 3. Furosemide. 4. Levothyroxine. 5. Lisinopril. 6. Tramadol. 7. Cholecalciferol. PHYSICAL EXAMINATION: GENERAL: The patient appears well developed, thin, and in no acute distress. HEENT: Wound to occipital region with [address] No active bleeding. Pupils are equal, round, and reactive to light. Extraocular movements normal without any nystagmus. Oropharynx is clear. NECK: Supple. No lymphadenopathy. No tenderness to the cervical region. LUNGS: Clear to auscultation bilaterally without any wheezing or crackles. CARDIAC: Regular rate and rhythm. ABDOMEN: Obese, nontender, nondistended, soft. No guarding or rigidity. No renal angle tenderness. EXTREMITIES: Notable for old bruising to the posterior left thigh. The patient states she bruises easily due to being on Plavix. No edema present. No calf tenderness. MUSCULOSKELETAL: No tenderness in the cervical, thoracic, or lumbar spine. Power 5/5 in all limbs. Contracture of the left 4th finger. Able to extend finger with assistance, but remains in flexed position at baseline. NEUROLOGIC: Alert and oriented x3. Facial movements normal. No slurred speech. No tongue deviation. No focal deficits. SKIN: Without rash or jaundice. LABORATORY DATA: White blood count 8.5, hemoglobin 8.2, hematocrit 24.9, platelets 288. Sodium 136, potassium 4.5, chloride 101, carbon dioxide 27, anion gap 13, BUN 54 which is elevated from 31 three years ago. Creatinine 3.38, also elevated from previous creatinine 4 years ago at which time it was 1.68. GFR 14, in 2015 it was 33. Total bilirubin 0.3. Recently, she had iron studies done with an iron level of 42, TIBC of 210, percent saturation of 20, ferritin of 155.28. LFTs done today are unremarkable. Troponin elevated at 0.072. Serum protein 5.9, albumin 3.2, globulin 3.7. IMAGING DATA: 1. CT brain. Encephalomalacia changes in the right frontal lobe noted. No intracranial hemorrhage or abnormalities. Posterior scalp hematoma and laceration noted. 2. Cervical spine CT. No evidence of fracture or traumatic subluxation. Advanced multilevel cervical degenerative changes present. Carotid calcification including potentially severe left common carotid stenosis. Advised to consider nonemergent carotid ultrasound. IMPRESSION AND PLAN: Ms. Pacheco is a 68-year-old woman, who is being admitted after having a syncopal episode with subsequent head injury and laceration to the posterior head. She is being admitted for management of the following; Suspected transient ischemic attack/cerebrovascular accident. The patient states she has a history of a stroke. Previously noted to have severe stenosis on the left ICA and right. Had felt to be a poor candidate for surgery due to underlying coronary artery disease. CT head shows no acute intracranial abnormalities. CT of the neck has shown changes concerning for severe left ICA stenosis. We will request an MRI of the brain and repeat carotid Dopplers as it has been several years from the last workup. The patient also with a history of CHF, but no signs of fluid overload or decompensation. We will check BNP and an echo. The patient denies any chest pain, but does have . Job ID: [id number]
[2018-09-20] MEDS: Fenofibrate 48 MG TAB PO SCH (08:55)
[2018-09-20] MEDS: Aspirin 81 mg Enteric Coated Tablet PO SCH (08:55)
[2018-09-20] MEDS: Polyethylene Glycol 3350 17 GM Packet PO SCH (08:55)
[2018-09-20] MEDS: Amlodipine 10 MG TAB PO SCH (08:56)
[2018-09-20] MEDS: Carvedilol 25 MG TAB PO SCH ×2 (08:56→21:07)
[2018-09-20] MEDS: Ferrous Gluconate 324 MG TAB PO SCH (08:56)
[2018-09-20] MEDS: Furosemide 40 MG TAB PO SCH ×2 (08:56→13:43)
[2018-09-20] MEDS: Insulin Glargine 15 UNITS in Pre-Filled Syringe 1 EACH SC SCH ×2 (08:57→21:07)
[2018-09-20] MEDS: HumaLOG 300 UNITS/3 ML VIAL SC PRN (11:17)
--- NOTE | 2018-09-20 15:18 | PDOC.PN ---
- Subjective Encounter Start Date: 09/20/18 Encounter Start Time: 10:30 Subjective: pt up in bed no complains - Objective Resuscitation Status - Order Detail: 09/17/18 16:23 Resuscitation Status Routine Co-Sign Provider: Resuscitation Status: FULL: Full Resuscitation Discussed with: Patient Additional comments: Surrogate Decision maker: Rajeev Chaidez Vital Signs & Weight: Vital Signs (12 hours) Temp Pulse Resp BP Pulse Ox 09/20/18 11:34 98.5 F 70 16 109/57 L 97 09/20/18 08:56 75 09/20/18 07:41 98.4 F 75 16 148/67 H 98 09/20/18 03:43 98 F 68 16 134/62 93 L Weight Weight 128 lb 7 oz I&O: 09/19/18 09/20/18 09/21/18 06:59 06:59 06:59 Intake Total 1440 900 480 Output Total 1050 900 Balance 390 0 480 Result Diagrams: 09/20/18 06:09 09/20/18 06:09 Additional Labs: Accuchecks 09/20/18 09/20/18 09/19/18 10:45 05:29 20:29 POC Glucose 170 H 90 199 H 09/19/18 16:57 POC Glucose 227 H Phys Exam - Physical Examination Neck: no nodes, no JVD, supple, full ROM Respiratory: no wheezing, no rales, no rhonchi, wheezing present, clear to auscultation bilateral Cardiovascular: RRR, no significant murmur, no rub, gallop, irregular Gastrointestinal: soft, non-tender, no distention, positive bowel sounds Musculoskeletal: no edema, pulses present, edema present Dx/Plan (1) Syncope and collapse Code(s): R55 - SYNCOPE AND COLLAPSE Status: Acute (2) Chronic kidney disease (CKD) Code(s): N18.9 - CHRONIC KIDNEY DISEASE, UNSPECIFIED Status: Acute (3) Uncontrolled diabetes mellitus Code(s): E11.65 - TYPE 2 DIABETES MELLITUS WITH HYPERGLYCEMIA Status: Acute (4) Hyperlipidemia Code(s): E78.5 - HYPERLIPIDEMIA, UNSPECIFIED Status: Acute - Plan pt's creatinine is trending up, will continue to monitor -: no intervention per cv surgery, pt's ef has improved -: will hold lasix. * . Review of Systems - Review of Systems Respiratory: negative: Cough, Dry, Shortness of Breath, Hemoptysis, SOB with Excertion, Pleuritic Pain, Sputum, Wheezing Gastrointestinal: negative: Nausea, Vomiting, Abdominal Pain, Diarrhea, Constipation, Melena, Hematochezia, Other Genitourinary: negative: Dysuria, Frequency, Incontinence, Hematuria, Retention , Other - Medications/Allergies Allergies/Adverse Reactions: Allergies Allergy/AdvReac Type Severity Reaction Status Date / Time albumin human Allergy Severe Rash Verified 09/17/18 18:31 [From Albuminar 25 %] pneumococcal vaccine Allergy Severe Rash Verified 09/17/18 18:31 diazepam [From Valium] AdvReac Severe prolonged Verified 09/17/18 18:31 sedation oxycodone AdvReac Severe hallucinati Verified 09/17/18 18:31 ons pregabalin [From Lyrica] AdvReac Severe hallucinati Verified 09/17/18 18:31 ons simvastatin AdvReac Severe stomach Verified 09/17/18 18:31 cramps neurontin Allergy Uncoded 09/17/18 18:31 Medications: Current Medications Acetaminophen (Tylenol) 650 mg NM Q4H PRN PRN Reason: Headache/Fever/Mild Pain (1-3) Amlodipine Besylate (Norvasc) 10 mg PO DAILY [facility] Last Admin: 09/20/18 08:56 Dose: 10 mg Aspirin (Ecotrin) 81 mg PO DAILY [facility] Last Admin: 09/20/18 08:55 Dose: 81 mg Atorvastatin Calcium (Lipitor) 80 mg PO [facility] Last Admin: 09/19/18 21:25 Dose: 80 mg Carvedilol (Coreg) 25 mg PO BID [facility] Last Admin: 09/20/18 08:56 Dose: 25 mg Cholecalciferol (Vitamin D3) 5,000 units PO HS [facility] Last Admin: 09/19/18 21:25 Dose: 5,000 units Dextrose/Water (Dextrose 50%) 25 gm SLOW IVP PRN PRN PRN Reason: Hypoglycemia Famotidine (Pepcid) 20 mg PO QPM [facility] Last Admin: 09/19/18 21:25 Dose: 20 mg Fenofibrate (Tricor) 48 mg PO DAILY [facility] Last Admin: 09/20/18 08:55 Dose: 48 mg Ferrous Gluconate (Fergon) 324 mg PO QA-[facility] Last Admin: 09/20/18 08:56 Dose: 324 mg Glucagon (Glucagon) 1 mg IM PRN PRN PRN Reason: Hypoglycemia Insulin Glargine 15 units/ (Miscellaneous Medication) 0.15 mls @ 0 mls/hr SC BID [facility] Last Admin: 09/20/18 08:57 Dose: 0.15 mls Dextrose/Water (D5w) 1,000 mls @ 0 mls/hr IV .Q0M PRN PRN Reason: Hypoglycemia Insulin Human Lispro (Humalog) 0 units SC .MILD SLIDING SCALE PRN PRN Reason: Mild Correctional Scale Last Admin: 09/20/18 11:17 Dose: 2 unit Insulin Human Lispro (Humalog) 0 units SC .BEDTIME SLIDING SC PRN PRN Reason: Bedtime Correctional Scale Isosorbide Mononitrate (Imdur Er) 30 mg PO BID [facility] Last Admin: 09/20/18 08:55 Dose: 30 mg Nitroglycerin (Nitrostat) 0.4 mg SL Q5MIN PRN PRN Reason: Chest Pain Ondansetron HCl (Zofran Odt) 4 mg PO Q6H PRN PRN Reason: Nausea/Vomiting (Ticagrelor [ (Brilinta] 60 Mg)) 0 each PO BID [facility] Last Admin: 09/20/18 08:56 Dose: 1 each Polyethylene Glycol (Miralax) 17 gm PO DAILY [facility] Last Admin: 09/20/18 08:55 Dose: 17 gm Promethazine HCl (Phenergan) 25 mg PO Q8HR PRN PRN Reason: Nausea Ranolazine (Ranexa) 1,000 mg PO BID [facility] Last Admin: 09/20/18 08:55 Dose: 1,000 mg Senna/Docusate Sodium (Senokot S) 2 tab PO BID PRN PRN Reason: Constipation Sodium Chloride (Flush - Normal Saline) 10 ml IVF Q12HR PRN PRN Reason: Saline Flush Last Admin: 09/19/18 21:28 Dose: 10 ml Sodium Chloride (Flush - Normal Saline) 10 ml IVF PRN PRN PRN Reason: Saline Flush Tramadol HCl (Ultram) 100 mg PO BIDPRN PRN PRN Reason: Moderate to Severe Pain (6-10) Last Admin: 09/19/18 21:26 Dose: 100 mg
--- NOTE | 2018-09-20 16:02 | PRG ---
DATE OF SERVICE: 09/20/2018 SUBJECTIVE: Patient was seen and examined at bedside and overnight events noted. Patient denies any shortness of breath or chest pain or palpitation. No history of nausea or vomiting or diarrhea or fever or chills or cramps. OBJECTIVE: GENERAL: This is an elderly female, in no acute distress. VITAL SIGNS: Temperature 98.5, pulse 75, respiratory rate 16, blood pressure 109/57. HEENT: Atraumatic, normocephalic. Oral mucosa is moist NECK: Supple. CARDIOVASCULAR: S1, S2 heard. Rate and rhythm regular. RESPIRATORY: Clear to auscultation. GASTROINTESTINAL: Abdomen is soft. MUSCULOSKELETAL: No tenderness. No edema. DERMATOLOGIC: No skin rash. NEUROLOGIC: Alert and awake and oriented X3. No focal neurologic deficits. Moving all the extremities. PSYCHIATRIC: Mood and affect normal. LABORATORY DATA: Potassium is 4.7, BUN is 47, creatinine is 3.5 ASSESSMENT AND PLAN: 1. Chronic kidney disease stage 5, stable. No acute indication for dialysis. Will need close monitoring as outpatient. 2. Anemia of chronic disease. 3. Vitamin D deficiency. 4. Edema. 5. Hypertension. 6. Proteinuria. 7. Diabetes. No acute indication for dialysis. Need to also follow up as an outpatient. Job ID: [id number]
[2018-09-20] MEDS: Famotidine 20 MG TAB PO SCH (21:06)
[2018-09-20] MEDS: Atorvastatin Calcium 40 MG TAB PO SCH (22:46)
[2018-09-21] MEDS: traMADol HCl 50 MG TAB PO PRN ×2 (04:41→22:44)
[2018-09-21 06:03] LABS: #Eosinphils 0.2 thou/uL (0.0-0.7); #Lymphocytes 1.6 thou/uL (1.20-3.40); #Monocytes 0.7 thou/uL (0.11-0.59); #Neutrophils 4.8 thou/uL (1.40-6.50); %Basophils 0.5 % (0.0-1.0); %Eosinophils 2.7 % (0.0-10.0); %Lymphocytes 21.7 % (21.0-51.0); %Monocytes 10.2 % (0.0-10.0); Hemoglobin 7.7 g/dL (12.0-16.0); Mean Corpuscular HGB CONC 32.5 g/dL (32.0-36.0); Mean Corpuscular Hemoglobin 29.4 pg (27.0-31.0); Mean Corpuscular Volume 90.2 fL (78.0-98.0); Mean Platelet Volume 7.5 fL (7.4-10.4); Platelet Count 269 thou/uL (130-400); RBC Distribution Width 13.2 % (11.5-14.5); Red Blood Cell (RBC) Count 2.63 mill/uL (4.20-5.40); White Blood Cell (WBC) Count 7.3 thou/uL (4.8-10.8)
[2018-09-21 06:17] LABS: Anion Gap 13 mmol/L (10-20); BUN (Urea Nitrogen) 51 mg/dL (9.8-20.1); Calc. Creatinine Clearance 14 mL/min (70-130); Calcium 8.9 mg/dL (7.8-10.44); Carbon Dioxide 25 mmol/L (23-31); Chloride 103 mmol/L (98-107); Estimated GFR-MDRD 13; Glucose 73 mg/dL (80-115); Potassium 4.8 mmol/L (3.5-5.1); Sodium 136 mmol/L (136-145)
[2018-09-21] MEDS: Polyethylene Glycol 3350 17 GM Packet PO SCH (09:28)
[2018-09-21] MEDS: Fenofibrate 48 MG TAB PO SCH (09:29)
[2018-09-21] MEDS: Amlodipine 10 MG TAB PO SCH (09:30)
[2018-09-21] MEDS: Carvedilol 25 MG TAB PO SCH ×2 (09:30→21:14)
[2018-09-21] MEDS: Aspirin 81 mg Enteric Coated Tablet PO SCH (09:30)
[2018-09-21] MEDS: Ferrous Gluconate 324 MG TAB PO SCH (09:32)
[2018-09-21] MEDS: Insulin Glargine 15 UNITS in Pre-Filled Syringe 1 EACH SC SCH ×2 (09:33→21:14)
[2018-09-21] MEDS ORDERED: Sodium Chloride 0.9% 500 ML IV SCH (13:30)
[2018-09-21] MEDS: HumaLOG 300 UNITS/3 ML VIAL SC PRN (15:36)
[2018-09-21 17:28] LABS: Anion Gap 10 mmol/L (10-20); BUN (Urea Nitrogen) 49 mg/dL (9.8-20.1); Calc. Creatinine Clearance 14 mL/min (70-130); Calcium 8.8 mg/dL (7.8-10.44); Carbon Dioxide 29 mmol/L (23-31); Chloride 102 mmol/L (98-107); Estimated GFR-MDRD 13; Glucose 79 mg/dL (80-115); Potassium 5.1 mmol/L (3.5-5.1); Sodium 136 mmol/L (136-145)
--- NOTE | 2018-09-21 18:38 | PRG ---
DATE OF SERVICE: 09/21/2018 SUBJECTIVE: Patient was seen and examined at bedside and overnight events noted. Patient denies any shortness of breath or chest pain or palpitation. No history of nausea or vomiting or diarrhea or fever or chills or cramps. OBJECTIVE: GENERAL: This is an elderly female, in no apparent distress. VITAL SIGNS: Temperature 98.7. Heart rate 67. Respiratory rate 16. Blood pressure 109/55. HEENT: Atraumatic, normocephalic. Oral mucosa is moist NECK: Supple. CARDIOVASCULAR: S1, S2 heard. Rate and rhythm regular. RESPIRATORY: Clear to auscultation. GASTROINTESTINAL: Abdomen is soft. MUSCULOSKELETAL: No tenderness. No edema. DERMATOLOGIC: No skin rash. NEUROLOGIC: Alert and awake and oriented X3. No focal neurologic deficits. Moving all the extremities. PSYCHIATRIC: Mood and affect normal. LABORATORY DATA: Potassium is 5.1, BUN is 49, and creatinine 3.4. ASSESSMENT AND PLAN: 1. Chronic kidney stage 5, seems to be stable. 2. Edema. Agree with holding Lasix for now. 3. Vitamin D deficiency. 4. Hypertension. 5. Proteinuria. 6. Diabetes. The patient refused to have any plans for renal replacement at this time. She wants to wait and watch. The patient was counseled on risk factors and complications symptoms of uremia. We will continue to follow. Job ID: [id number]
--- NOTE | 2018-09-21 18:39 | PDOC.PN ---
- Subjective Encounter Start Date: 09/21/18 Encounter Start Time: 11:15 Subjective: pt up in bed no complains - Objective Resuscitation Status - Order Detail: 09/17/18 16:23 Resuscitation Status Routine Co-Sign Provider: Resuscitation Status: FULL: Full Resuscitation Discussed with: Patient Additional comments: Surrogate Decision maker: Rajeev Chaidez Vital Signs & Weight: Vital Signs (12 hours) Temp Pulse Resp BP BP Pulse Ox 09/21/18 16:00 98.7 F 67 16 109/55 L 100 09/21/18 11:40 97.8 F 75 18 131/57 L 96 09/21/18 09:30 68 137/60 09/21/18 08:05 100 09/21/18 07:48 97.9 F 71 16 114/56 L 100 Weight Weight 124 lb 9.6 oz I&O: 09/20/18 09/21/18 09/22/18 06:59 06:59 06:59 Intake Total 900 1380 800 Output Total 900 2300 700 Balance 0 -920 100 Result Diagrams: 09/21/18 05:36 09/21/18 17:01 Additional Labs: Accuchecks 09/21/18 09/20/18 05:52 19:18 POC Glucose 79 136 H Phys Exam - Physical Examination Neck: no nodes, no JVD, supple, full ROM Respiratory: no wheezing, no rales, no rhonchi, wheezing present, clear to auscultation bilateral Cardiovascular: RRR, no significant murmur, no rub, gallop, irregular Gastrointestinal: soft, non-tender, no distention, positive bowel sounds Dx/Plan (1) Syncope and collapse Code(s): R55 - SYNCOPE AND COLLAPSE Status: Acute (2) Chronic kidney disease (CKD) Code(s): N18.9 - CHRONIC KIDNEY DISEASE, UNSPECIFIED Status: Acute (3) Uncontrolled diabetes mellitus Code(s): E11.65 - TYPE 2 DIABETES MELLITUS WITH HYPERGLYCEMIA Status: Acute - Plan pt's creatinine continues to worsen. will give ns 500ml and check -: bmp. continue current meds. pt had 4-5 beats of vtach, pt asymtomatic -: will monitor for one more day. possible discharge in am * . Review of Systems - Review of Systems Respiratory: negative: Cough, Dry, Shortness of Breath, Hemoptysis, SOB with Excertion, Pleuritic Pain, Sputum, Wheezing Cardiovascular: negative: chest pain, palpitations, orthopnea, paroxysmal nocturnal dyspnea, edema, light headedness, other Gastrointestinal: negative: Nausea, Vomiting, Abdominal Pain, Diarrhea, Constipation, Melena, Hematochezia, Other - Medications/Allergies Allergies/Adverse Reactions: Allergies Allergy/AdvReac Type Severity Reaction Status Date / Time albumin human Allergy Severe Rash Verified 09/17/18 18:31 [From Albuminar 25 %] pneumococcal vaccine Allergy Severe Rash Verified 09/17/18 18:31 diazepam [From Valium] AdvReac Severe prolonged Verified 09/17/18 18:31 sedation oxycodone AdvReac Severe hallucinati Verified 09/17/18 18:31 ons pregabalin [From Lyrica] AdvReac Severe hallucinati Verified 09/17/18 18:31 ons simvastatin AdvReac Severe stomach Verified 09/17/18 18:31 cramps neurontin Allergy Uncoded 09/17/18 18:31 Medications: Current Medications Acetaminophen (Tylenol) 650 mg LA Q4H PRN PRN Reason: Headache/Fever/Mild Pain (1-3) Amlodipine Besylate (Norvasc) 10 mg PO DAILY [facility] Last Admin: 09/21/18 09:30 Dose: 10 mg Aspirin (Ecotrin) 81 mg PO DAILY [facility] Last Admin: 09/21/18 09:30 Dose: 81 mg Atorvastatin Calcium (Lipitor) 80 mg PO [facility] Last Admin: 09/20/18 22:46 Dose: 80 mg Carvedilol (Coreg) 25 mg PO BID [facility] Last Admin: 09/21/18 09:30 Dose: 25 mg Cholecalciferol (Vitamin D3) 5,000 units PO HS [facility] Last Admin: 09/20/18 21:05 Dose: 5,000 units Dextrose/Water (Dextrose 50%) 25 gm SLOW IVP PRN PRN PRN Reason: Hypoglycemia Famotidine (Pepcid) 20 mg PO QPM [facility] Last Admin: 09/20/18 21:06 Dose: 20 mg Fenofibrate (Tricor) 48 mg PO DAILY [facility] Last Admin: 09/21/18 09:29 Dose: 48 mg Ferrous Gluconate (Fergon) 324 mg PO QAM-WM [facility] Last Admin: 09/21/18 09:32 Dose: 324 mg Glucagon (Glucagon) 1 mg IM PRN PRN PRN Reason: Hypoglycemia Insulin Glargine 15 units/ (Miscellaneous Medication) 0.15 mls @ 0 mls/hr SC BID [facility] Last Admin: 09/21/18 09:33 Dose: 0.15 mls Dextrose/Water (D5w) 1,000 mls @ 0 mls/hr IV .Q0M PRN PRN Reason: Hypoglycemia Insulin Human Lispro (Humalog) 0 units SC .MILD SLIDING SCALE PRN PRN Reason: Mild Correctional Scale Last Admin: 09/21/18 15:36 Dose: 3 unit Insulin Human Lispro (Humalog) 0 units SC .BEDTIME SLIDING SC PRN PRN Reason: Bedtime Correctional Scale Isosorbide Mononitrate (Imdur Er) 30 mg PO BID [facility] Last Admin: 09/21/18 09:30 Dose: 30 mg Nitroglycerin (Nitrostat) 0.4 mg SL Q5MIN PRN PRN Reason: Chest Pain Ondansetron HCl (Zofran Odt) 4 mg PO Q6H PRN PRN Reason: Nausea/Vomiting (Ticagrelor [ (Brilinta] 60 Mg)) 0 each PO BID [facility] Last Admin: 09/21/18 09:28 Dose: 1 each Polyethylene Glycol (Miralax) 17 gm PO DAILY [facility] Last Admin: 09/21/18 09:28 Dose: 17 gm Promethazine HCl (Phenergan) 25 mg PO Q8HR PRN PRN Reason: Nausea Ranolazine (Ranexa) 1,000 mg PO BID [facility] Last Admin: 09/21/18 09:30 Dose: 1,000 mg Senna/Docusate Sodium (Senokot S) 2 tab PO BID PRN PRN Reason: Constipation Sodium Chloride (Flush - Normal Saline) 10 ml IVF Q12HR PRN PRN Reason: Saline Flush Last Admin: 09/19/18 21:28 Dose: 10 ml Sodium Chloride (Flush - Normal Saline) 10 ml IVF PRN PRN PRN Reason: Saline Flush Tramadol HCl (Ultram) 100 mg PO BIDPRN PRN PRN Reason: Moderate to Severe Pain (6-10) Last Admin: 09/21/18 04:41 Dose: 100 mg
[2018-09-21] MEDS: Famotidine 20 MG TAB PO SCH (21:14)
[2018-09-21] MEDS: Atorvastatin Calcium 40 MG TAB PO SCH (21:14)
[2018-09-22 05:53] LABS: #Eosinphils 0.3 thou/uL (0.0-0.7); #Lymphocytes 1.7 thou/uL (1.20-3.40); #Monocytes 0.8 thou/uL (0.11-0.59); %Basophils 0.4 % (0.0-1.0); %Eosinophils 3.6 % (0.0-10.0); %Lymphocytes 21.5 % (21.0-51.0); %Monocytes 10.2 % (0.0-10.0); %Neutrophils 64.4 % (42.0-75.0); Hemoglobin 8.4 g/dL (12.0-16.0); Mean Corpuscular HGB CONC 32.9 g/dL (32.0-36.0); Mean Corpuscular Hemoglobin 29.9 pg (27.0-31.0); Mean Corpuscular Volume 90.7 fL (78.0-98.0); Mean Platelet Volume 7.2 fL (7.4-10.4); Platelet Count 302 thou/uL (130-400); RBC Distribution Width 13.2 % (11.5-14.5); Red Blood Cell (RBC) Count 2.79 mill/uL (4.20-5.40); White Blood Cell (WBC) Count 7.8 thou/uL (4.8-10.8)
[2018-09-22] MEDS: Fenofibrate 48 MG TAB PO SCH (09:13)
[2018-09-22] MEDS: Polyethylene Glycol 3350 17 GM Packet PO SCH (09:13)
[2018-09-22] MEDS: Carvedilol 25 MG TAB PO SCH ×2 (09:13→20:54)
[2018-09-22] MEDS: Aspirin 81 mg Enteric Coated Tablet PO SCH (09:13)
[2018-09-22] MEDS: Ferrous Gluconate 324 MG TAB PO SCH (09:13)
[2018-09-22] MEDS: Amlodipine 10 MG TAB PO SCH (09:13)
[2018-09-22] MEDS: Insulin Glargine 15 UNITS in Pre-Filled Syringe 1 EACH SC SCH ×2 (09:29→20:55)
[2018-09-22 11:37] LABS: Anion Gap 11 mmol/L (10-20); BUN (Urea Nitrogen) 49 mg/dL (9.8-20.1); Calc. Creatinine Clearance 13 mL/min (70-130); Calcium 9.2 mg/dL (7.8-10.44); Carbon Dioxide 29 mmol/L (23-31); Chloride 99 mmol/L (98-107); Estimated GFR-MDRD 12; Glucose 140 mg/dL (80-115); Potassium 4.9 mmol/L (3.5-5.1); Sodium 134 mmol/L (136-145)
[2018-09-22] MEDS ORDERED: Sodium Chloride 0.9% 250 ML IV SCH (13:45)
--- NOTE | 2018-09-22 17:57 | PRG ---
DATE OF SERVICE: 09/22/2018 SUBJECTIVE: Patient was seen and examined at bedside and overnight events noted. Patient denies any shortness of breath or chest pain or palpitation. No history of nausea or vomiting or diarrhea or fever or chills or cramps. OBJECTIVE: GENERAL: This is a well-built female, in no acute distress. VITAL SIGNS: Temperature 98.5. Heart rate 69. Respiratory rate 17. Blood pressure 125/59. HEENT: Atraumatic, normocephalic. Oral mucosa is moist NECK: Supple. CARDIOVASCULAR: S1, S2 heard. Rate and rhythm regular. RESPIRATORY: Clear to auscultation. GASTROINTESTINAL: Abdomen is soft. MUSCULOSKELETAL: No tenderness. No edema. DERMATOLOGIC: No skin rash. NEUROLOGIC: Alert and awake and oriented X3. No focal neurologic deficits. Moving all the extremities. PSYCHIATRIC: Mood and affect normal. LABORATORY DATA: Potassium is 4.9, BUN is 49, and creatinine is 3.8. ASSESSMENT AND PLAN: 1. Acute kidney injury on chronic kidney disease, stage 5. Creatinine is getting worse. The patient does not wish to have any plans for renal replacement and not ready for it. Advised to have close followup. 2. Vitamin D deficiency. 3. Hypertension. 4. Proteinuria. 5. Diabetes. Continue close monitoring. No acute indication for dialysis. Job ID: [id number]
[2018-09-22] MEDS: Atorvastatin Calcium 40 MG TAB PO SCH (20:53)
[2018-09-22] MEDS: Famotidine 20 MG TAB PO SCH (20:54)
[2018-09-22] MEDS: traMADol HCl 50 MG TAB PO PRN (20:58)
--- NOTE | 2018-09-22 21:52 | PDOC.PN ---
- Subjective Encounter Start Date: 09/22/18 Encounter Start Time: 10:15 Subjective: pt up in bed feels nauseated today - Objective Resuscitation Status - Order Detail: 09/17/18 16:23 Resuscitation Status Routine Co-Sign Provider: Resuscitation Status: FULL: Full Resuscitation Discussed with: Patient Additional comments: Surrogate Decision maker: Rajeev Chaidez Vital Signs & Weight: Vital Signs (12 hours) Temp Pulse Resp BP BP Pulse Ox 09/22/18 20:00 98.6 F 81 19 143/67 H 98 09/22/18 16:00 98.5 F 69 20 125/59 L 100 09/22/18 11:44 97.4 F L 72 20 94/50 L 100 Weight Weight 130 lb 8 oz I&O: 09/21/18 09/22/18 09/23/18 06:59 06:59 06:59 Intake Total 1380 1870 900 Output Total 2300 1300 650 Balance -920 570 250 Result Diagrams: 09/22/18 05:35 09/22/18 10:24 Additional Labs: Accuchecks 09/22/18 09/22/18 09/22/18 17:33 10:37 04:57 POC Glucose 151 H 164 H 95 09/21/18 09/21/18 09/21/18 21:16 16:43 11:14 POC Glucose 92 110 202 H Phys Exam - Physical Examination Neck: no nodes, no JVD, supple, full ROM Respiratory: no wheezing, no rales, no rhonchi, wheezing present, clear to auscultation bilateral Cardiovascular: RRR, no significant murmur, no rub, gallop, irregular Gastrointestinal: soft, non-tender, no distention, positive bowel sounds Musculoskeletal: no edema, pulses present, edema present Dx/Plan (1) Syncope and collapse Code(s): R55 - SYNCOPE AND COLLAPSE Status: Acute (2) Chronic kidney disease (CKD) Code(s): N18.9 - CHRONIC KIDNEY DISEASE, UNSPECIFIED Status: Acute (3) Uncontrolled diabetes mellitus Code(s): E11.65 - TYPE 2 DIABETES MELLITUS WITH HYPERGLYCEMIA Status: Acute - Plan pt states she does not feel well today. will give her small bolus -: will monitor her for one more day. possible discharge in am * . Review of Systems - Review of Systems Respiratory: negative: Cough, Dry, Shortness of Breath, Hemoptysis, SOB with Excertion, Pleuritic Pain, Sputum, Wheezing Cardiovascular: negative: chest pain, palpitations, orthopnea, paroxysmal nocturnal dyspnea, edema, light headedness, other Gastrointestinal: Nausea. negative: Vomiting, Abdominal Pain, Diarrhea, Constipation, Melena, Hematochezia, Other - Medications/Allergies Allergies/Adverse Reactions: Allergies Allergy/AdvReac Type Severity Reaction Status Date / Time albumin human Allergy Severe Rash Verified 09/17/18 18:31 [From Albuminar 25 %] pneumococcal vaccine Allergy Severe Rash Verified 09/17/18 18:31 diazepam [From Valium] AdvReac Severe prolonged Verified 09/17/18 18:31 sedation oxycodone AdvReac Severe hallucinati Verified 09/17/18 18:31 ons pregabalin [From Lyrica] AdvReac Severe hallucinati Verified 09/17/18 18:31 ons simvastatin AdvReac Severe stomach Verified 09/17/18 18:31 cramps neurontin Allergy Uncoded 09/17/18 18:31 Medications: Current Medications Acetaminophen (Tylenol) 650 mg AL Q4H PRN PRN Reason: Headache/Fever/Mild Pain (1-3) Amlodipine Besylate (Norvasc) 10 mg PO DAILY [facility] Last Admin: 09/22/18 09:13 Dose: 10 mg Aspirin (Ecotrin) 81 mg PO DAILY [facility] Last Admin: 09/22/18 09:13 Dose: 81 mg Atorvastatin Calcium (Lipitor) 80 mg PO HS [facility] Last Admin: 09/22/18 20:53 Dose: 80 mg Carvedilol (Coreg) 25 mg PO BID [facility] Last Admin: 09/22/18 20:54 Dose: 25 mg Cholecalciferol (Vitamin D3) 5,000 units PO HS [facility] Last Admin: 09/22/18 20:54 Dose: 5,000 units Dextrose/Water (Dextrose 50%) 25 gm SLOW IVP PRN PRN PRN Reason: Hypoglycemia Famotidine (Pepcid) 20 mg PO QPM [facility] Last Admin: 09/22/18 20:54 Dose: 20 mg Fenofibrate (Tricor) 48 mg PO DAILY [facility] Last Admin: 09/22/18 09:13 Dose: 48 mg Ferrous Gluconate (Fergon) 324 mg PO QA-[facility] Last Admin: 09/22/18 09:13 Dose: 324 mg Glucagon (Glucagon) 1 mg IM PRN PRN PRN Reason: Hypoglycemia Insulin Glargine 15 units/ (Miscellaneous Medication) 0.15 mls @ 0 mls/hr SC BID [facility] Last Admin: 09/22/18 20:55 Dose: 0.15 mls Dextrose/Water (D5w) 1,000 mls @ 0 mls/hr IV .Q0M PRN PRN Reason: Hypoglycemia Insulin Human Lispro (Humalog) 0 units SC .MILD SLIDING SCALE PRN PRN Reason: Mild Correctional Scale Last Admin: 09/21/18 15:36 Dose: 3 unit Insulin Human Lispro (Humalog) 0 units SC .BEDTIME SLIDING SC PRN PRN Reason: Bedtime Correctional Scale Isosorbide Mononitrate (Imdur Er) 30 mg PO BID [facility] Last Admin: 09/22/18 20:56 Dose: 30 mg Nitroglycerin (Nitrostat) 0.4 mg SL Q5MIN PRN PRN Reason: Chest Pain Ondansetron HCl (Zofran Odt) 4 mg PO Q6H PRN PRN Reason: Nausea/Vomiting (Ticagrelor [ (Brilinta] 60 Mg)) 0 each PO BID [facility] Last Admin: 09/22/18 20:57 Dose: 1 each Polyethylene Glycol (Miralax) 17 gm PO DAILY [facility] Last Admin: 09/22/18 09:13 Dose: 17 gm Promethazine HCl (Phenergan) 25 mg PO Q8HR PRN PRN Reason: Nausea Last Admin: 09/22/18 05:06 Dose: 25 mg Ranolazine (Ranexa) 1,000 mg PO BID [facility] Last Admin: 09/22/18 20:56 Dose: 1,000 mg Senna/Docusate Sodium (Senokot S) 2 tab PO BID PRN PRN Reason: Constipation Sodium Chloride (Flush - Normal Saline) 10 ml IVF Q12HR PRN PRN Reason: Saline Flush Last Admin: 09/19/18 21:28 Dose: 10 ml Sodium Chloride (Flush - Normal Saline) 10 ml IVF PRN PRN PRN Reason: Saline Flush Tramadol HCl (Ultram) 100 mg PO BIDPRN PRN PRN Reason: Moderate to Severe Pain (6-10) Last Admin: 09/22/18 20:58 Dose: 100 mg
[2018-09-23] MEDS ORDERED: Carvedilol 25 MG TAB PO SCH (08:46)
[2018-09-23] MEDS: Polyethylene Glycol 3350 17 GM Packet PO SCH (09:49)
[2018-09-23] MEDS: Carvedilol 6.25 MG TAB PO SCH ×2 (09:50→21:22)
[2018-09-23] MEDS: Aspirin 81 mg Enteric Coated Tablet PO SCH (09:50)
[2018-09-23] MEDS: Amlodipine 10 MG TAB PO SCH (09:50)
[2018-09-23] MEDS: Ferrous Gluconate 324 MG TAB PO SCH (09:51)
[2018-09-23] MEDS: Insulin Glargine 7 UNITS in Pre-Filled Syringe 1 EACH SC SCH (09:52)
[2018-09-23] MEDS: Fenofibrate 48 MG TAB PO SCH (09:59)
[2018-09-23] MEDS: HumaLOG 300 UNITS/3 ML VIAL SC PRN (11:13)
--- NOTE | 2018-09-23 15:38 | PDOC.PN ---
- Subjective Encounter Start Date: 09/23/18 Encounter Start Time: 09:30 Subjective: pt up in bed does not want to go home - Objective Resuscitation Status - Order Detail: 09/17/18 16:23 Resuscitation Status Routine Co-Sign Provider: Resuscitation Status: FULL: Full Resuscitation Discussed with: Patient Additional comments: Surrogate Decision maker: Rajeev Chaidez Vital Signs & Weight: Vital Signs (12 hours) Temp Pulse Resp BP BP BP Pulse Ox 09/23/18 11:46 98 F 72 16 117/56 L 97 09/23/18 09:50 77 114/54 L 09/23/18 08:15 100 09/23/18 07:30 97.4 F L 77 114/54 L 100 09/23/18 04:00 97.7 F 70 19 115/53 L 99 Weight Weight 127 lb 5 oz I&O: 09/22/18 09/23/18 09/24/18 06:59 06:59 06:59 Intake Total 1870 1500 500 Output Total 1300 1150 300 Balance 570 350 200 Result Diagrams: 09/22/18 05:35 09/22/18 10:24 Additional Labs: Accuchecks 09/23/18 09/23/18 09/23/18 10:26 07:18 06:20 POC Glucose 302 H 128 H 58 L* 09/22/18 09/22/18 19:51 17:33 POC Glucose 185 H 151 H Phys Exam - Physical Examination Neck: no nodes, no JVD, supple, full ROM Respiratory: no wheezing, no rales, no rhonchi, wheezing present, clear to auscultation bilateral Cardiovascular: RRR, no significant murmur, no rub, gallop, irregular Gastrointestinal: soft, non-tender, no distention, positive bowel sounds Musculoskeletal: no edema, pulses present, edema present Dx/Plan (1) Syncope and collapse Code(s): R55 - SYNCOPE AND COLLAPSE Status: Acute (2) Chronic kidney disease (CKD) Code(s): N18.9 - CHRONIC KIDNEY DISEASE, UNSPECIFIED Status: Acute (3) Uncontrolled diabetes mellitus Code(s): E11.65 - TYPE 2 DIABETES MELLITUS WITH HYPERGLYCEMIA Status: Acute - Plan spoke with pt's friend who does not feel comfortable -: for me to discharge her home today since no one will be there for her -: given her fall. will discharge her hansel * . Review of Systems - Review of Systems Respiratory: negative: Cough, Dry, Shortness of Breath, Hemoptysis, SOB with Excertion, Pleuritic Pain, Sputum, Wheezing Cardiovascular: negative: chest pain, palpitations, orthopnea, paroxysmal nocturnal dyspnea, edema, light headedness, other Gastrointestinal: negative: Nausea, Vomiting, Abdominal Pain, Diarrhea, Constipation, Melena, Hematochezia, Other - Medications/Allergies Allergies/Adverse Reactions: Allergies Allergy/AdvReac Type Severity Reaction Status Date / Time albumin human Allergy Severe Rash Verified 09/17/18 18:31 [From Albuminar 25 %] pneumococcal vaccine Allergy Severe Rash Verified 09/17/18 18:31 diazepam [From Valium] AdvReac Severe prolonged Verified 09/17/18 18:31 sedation oxycodone AdvReac Severe hallucinati Verified 09/17/18 18:31 ons pregabalin [From Lyrica] AdvReac Severe hallucinati Verified 09/17/18 18:31 ons simvastatin AdvReac Severe stomach Verified 09/17/18 18:31 cramps neurontin Allergy Uncoded 09/17/18 18:31 Medications: Current Medications Acetaminophen (Tylenol) 650 mg ME Q4H PRN PRN Reason: Headache/Fever/Mild Pain (1-3) Amlodipine Besylate (Norvasc) 10 mg PO DAILY [facility] Last Admin: 09/23/18 09:50 Dose: 10 mg Aspirin (Ecotrin) 81 mg PO DAILY [facility] Last Admin: 09/23/18 09:50 Dose: 81 mg Atorvastatin Calcium (Lipitor) 80 mg PO HS [facility] Last Admin: 09/22/18 20:53 Dose: 80 mg Carvedilol (Coreg) 12.5 mg PO BID [facility] Last Admin: 09/23/18 09:50 Dose: 12.5 mg Cholecalciferol (Vitamin D3) 5,000 units PO HS [facility] Last Admin: 09/22/18 20:54 Dose: 5,000 units Dextrose/Water (Dextrose 50%) 25 gm SLOW IVP PRN PRN PRN Reason: Hypoglycemia Famotidine (Pepcid) 20 mg PO QPM [facility] Last Admin: 09/22/18 20:54 Dose: 20 mg Fenofibrate (Tricor) 48 mg PO DAILY [facility] Last Admin: 09/23/18 09:59 Dose: 48 mg Ferrous Gluconate (Fergon) 324 mg PO QAM-[facility] Last Admin: 09/23/18 09:51 Dose: 324 mg Glucagon (Glucagon) 1 mg IM PRN PRN PRN Reason: Hypoglycemia Dextrose/Water (D5w) 1,000 mls @ 0 mls/hr IV .Q0M PRN PRN Reason: Hypoglycemia Insulin Glargine 7 units/ (Miscellaneous Medication) 0.07 mls @ 0 mls/hr SC [facility] Insulin Glargine 7 units/ (Miscellaneous Medication) 0.07 mls @ 0 mls/hr SC QAM [facility] Last Admin: 09/23/18 09:52 Dose: 0.07 mls Insulin Human Lispro (Humalog) 0 units SC .MILD SLIDING SCALE PRN PRN Reason: Mild Correctional Scale Last Admin: 09/23/18 11:13 Dose: 5 unit Insulin Human Lispro (Humalog) 0 units SC .BEDTIME SLIDING SC PRN PRN Reason: Bedtime Correctional Scale Isosorbide Mononitrate (Imdur Er) 30 mg PO BID [facility] Last Admin: 09/23/18 09:49 Dose: 30 mg Nitroglycerin (Nitrostat) 0.4 mg SL Q5MIN PRN PRN Reason: Chest Pain Ondansetron HCl (Zofran Odt) 4 mg PO Q6H PRN PRN Reason: Nausea/Vomiting (Ticagrelor [ (Brilinta] 60 Mg)) 0 each PO BID [facility] Last Admin: 09/23/18 09:48 Dose: 1 each Polyethylene Glycol (Miralax) 17 gm PO DAILY [facility] Last Admin: 09/23/18 09:49 Dose: 17 gm Promethazine HCl (Phenergan) 25 mg PO Q8HR PRN PRN Reason: Nausea Last Admin: 09/22/18 05:06 Dose: 25 mg Ranolazine (Ranexa) 1,000 mg PO BID [facility] Last Admin: 09/23/18 09:59 Dose: 1,000 mg Senna/Docusate Sodium (Senokot S) 2 tab PO BID PRN PRN Reason: Constipation Sodium Chloride (Flush - Normal Saline) 10 ml IVF Q12HR PRN PRN Reason: Saline Flush Last Admin: 09/19/18 21:28 Dose: 10 ml Sodium Chloride (Flush - Normal Saline) 10 ml IVF PRN PRN PRN Reason: Saline Flush Tramadol HCl (Ultram) 100 mg PO BIDPRN PRN PRN Reason: Moderate to Severe Pain (6-10) Last Admin: 09/22/18 20:58 Dose: 100 mg
--- NOTE | 2018-09-23 16:24 | PRG ---
DATE OF SERVICE: 09/23/2018 SUBJECTIVE: Patient was seen and examined at bedside and overnight events noted. Patient denies any shortness of breath or chest pain or palpitation. No history of nausea or vomiting or diarrhea or fever or chills or cramps. OBJECTIVE: GENERAL: This is an elderly female, in no apparent distress. VITAL SIGNS: Temperature 97. Pulse 72. Respiratory rate 16. Blood pressure . HEENT: Atraumatic, normocephalic. Oral mucosa is moist. NECK: Supple. CARDIOVASCULAR: S1, S2 heard. Rate and rhythm regular. RESPIRATORY: Clear to auscultation. GASTROINTESTINAL: Abdomen is soft. MUSCULOSKELETAL: No tenderness. No edema. DERMATOLOGIC: No skin rash. NEUROLOGIC: Alert and awake and oriented X3. No focal neurologic deficits. Moving all the extremities. PSYCHIATRIC: Mood and affect normal. LABORATORY DATA: Not done today. ASSESSMENT AND PLAN: 1. Acute kidney injury on chronic kidney disease stage 5 with worsening creatinine. The patient refused to have renal replacement at this point. 2. Vitamin deficiency. 3. Hypertension. 4. Proteinuria. 5. Diabetes. 6. No acute indication for dialysis. We will monitor. The patient uremic symptoms. Job ID: [id number]
[2018-09-23] MEDS ORDERED: Insulin Glargine 7 UNITS in Pre-Filled Syringe 1 EACH SC SCH (21:00)
[2018-09-23] MEDS: Atorvastatin Calcium 40 MG TAB PO SCH (21:21)
[2018-09-23] MEDS: Famotidine 20 MG TAB PO SCH (21:22)
[2018-09-23] MEDS: traMADol HCl 50 MG TAB PO PRN (22:36)
[2018-09-24 04:25] VITALS: TEMP 97.9
[2018-09-24 08:20] VITALS: BP 135/58
[2018-09-24] MEDS: Aspirin 81 mg Enteric Coated Tablet PO SCH (08:41)
[2018-09-24] MEDS: Fenofibrate 48 MG TAB PO SCH (08:41)
[2018-09-24] MEDS: Ferrous Gluconate 324 MG TAB PO SCH (08:41)
[2018-09-24] MEDS: Polyethylene Glycol 3350 17 GM Packet PO SCH (08:41)
[2018-09-24] MEDS: Amlodipine 10 MG TAB PO SCH (08:41)
[2018-09-24] MEDS: Carvedilol 6.25 MG TAB PO SCH (08:41)
[2018-09-24] MEDS: traMADol HCl 50 MG TAB PO PRN (08:55)
[2018-09-24] MEDS: Insulin Glargine 7 UNITS in Pre-Filled Syringe 1 EACH SC SCH (10:06)
--- NOTE | 2018-09-24 12:33 | PRG ---
DATE OF SERVICE: 09/24/2018 SUBJECTIVE: Patient was seen and examined at bedside and overnight events noted. Patient denies any shortness of breath or chest pain or palpitation. No history of nausea or vomiting or diarrhea or fever or chills or cramps. OBJECTIVE: GENERAL: This is an elderly female, in no apparent distress. VITAL SIGNS: Temperature . HEENT: Atraumatic, normocephalic. Oral mucosa is moist. NECK: Supple. CARDIOVASCULAR: S1, S2 heard. Rate and rhythm regular. RESPIRATORY: Clear to auscultation. GASTROINTESTINAL: Abdomen is soft. MUSCULOSKELETAL: No tenderness. No edema. DERMATOLOGIC: No skin rash. NEUROLOGIC: Alert and awake and oriented x3. No focal neurologic deficits. Moving all the extremities. PSYCHIATRIC: Mood and affect normal. LABORATORY DATA: Not done today. ASSESSMENT AND PLAN: 1. Acute kidney injury on chronic kidney disease, stage 5. 2. Hypertension. 3. Diabetes. 4. Proteinuria. 5. Edema. Advised to follow with Dr. Layton in a week. Job ID: [id number]
--- NOTE | 2018-09-25 16:09 | EKG ---
Test Reason : Blood Pressure : / mmHG Vent. Rate : 077 BPM Atrial Rate : 077 BPM P-R Int : 186 ms QRS Dur : 118 ms QT Int : 408 ms P-R-T Axes : 079 008 131 degrees QTc Int : 461 ms Normal sinus rhythm Non-specific intra-ventricular conduction delay Abnormal ECG Confirmed by VINNIE MYRICK, CRUZ ([id number]), food editor NUPUR BRITO ([id number]) on 09/25/2018 4:08:52 PM Referred By: Confirmed By:CRUZ BIRMINGHAM MD
== END 2018-09-24 12:08 | disposition home or self-care (01) | DRG 682 ==
LOC: ERS 12:28 → 2SW 17:58 → 2SE 09-18 08:54 → OBSVTOIN 09-19 07:31
PROVIDERS: ADMIT Internal Medicine; ATTEND Internal Medicine
DX: N17.9 Acute kidney failure, unspecified (principal); I50.23 Acute on chronic systolic (congestive) heart failure; I13.0 Hypertensive heart and chronic kidney disease with heart failure and stage 1 through stage 4 chronic kidney disease, or unspecified chronic kidney disease; J96.10 Chronic respiratory failure, unspecified whether with hypoxia or hypercapnia; N18.5 Chronic kidney disease, stage 5; I25.10 Atherosclerotic heart disease of native coronary artery without angina pectoris; J44.9 Chronic obstructive pulmonary disease, unspecified; E78.5 Hyperlipidemia, unspecified; E11.22 Type 2 diabetes mellitus with diabetic chronic kidney disease; D63.1 Anemia in chronic kidney disease; E55.9 Vitamin D deficiency, unspecified; I65.22 Occlusion and stenosis of left carotid artery; N25.81 Secondary hyperparathyroidism of renal origin; E03.9 Hypothyroidism, unspecified; R80.9 Proteinuria, unspecified; E11.65 Type 2 diabetes mellitus with hyperglycemia; Z53.29 Procedure and treatment not carried out because of patient's decision for other reasons; Z87.891 Personal history of nicotine dependence; Z95.1 Presence of aortocoronary bypass graft; Z86.73 Personal history of transient ischemic attack (TIA), and cerebral infarction without residual deficits; Z79.84 Long term (current) use of oral hypoglycemic drugs; Z88.8 Allergy status to other drugs, medicaments and biological substances; Z88.7 Allergy status to serum and vaccine; Z79.899 Other long term (current) drug therapy
CPT/HCPCS: 12011; 36415; 36416; 70450; 70551; 72125; 76770; 80048; 80053; 80061; 81003; 81015; 82306; 82550; 82553; 82570; 82728; 83036; 83540; 83550; 83605; 83735; 83880; 83970; 84100; 84145; 84156; 84300; 84443; 84484; 85025; 90471; 90715; 93005; 93306; 93880; J1825; J2001; Q0162; Q0169; Q5105

== ENCOUNTER 2018-10-11 13:27 | Inpatient (IN) | payer MEDICARE, OTHER ==
[2018-10-11] MEDS ORDERED: Midazolam HCl 2 mg/2 ml Vial ONE (13:33)
[2018-10-11] MEDS ORDERED: ISOVUE-370 76%-LOCM 1 ML ONE (13:42)
--- NOTE | 2018-10-11 13:47 | CT ---
CT BRAIN WITHOUT CONTRAST HISTORY: Level 1 stroke alert COMPARISON: 09/18/2018 FINDINGS: There is motion artifact which is reduces the sensitivity of the exam. There has been interval increase in size of the right-sided chronic subdural hematoma compared to the previous study measuring about 11 mm in thickness. No midline shift is identified. The ventricular size is stable and the basilar cisterns are patent. Previously noted moderate sized regions of enceph alomalacia and gliosis in the right cerebral hemisphere indicating old infarctions are again seen. The bony calvarium is intact. Scalp contusion in the left posterior parietal region shows interval im provement. No acute intracranial hemorrhage or infarction is seen. IMPRESSION: Interval increase in size of the chronic right subdural hematoma without acute hemorrhage . This exam was interpreted in consultation with Dr. Oni Diop (neuroradiologist) who concurs. Discussed over the telephone with ER physician Dr. Hernandez at 1:40 PM.
[2018-10-11 13:48] LABS: #Lymphocytes 0.7 thou/uL (1.20-3.40); #Monocytes 0.4 thou/uL (0.11-0.59); #Neutrophils 12.4 thou/uL (1.40-6.50); %Basophils 0.2 % (0.0-1.0); %Eosinophils 0.2 % (0.0-10.0); %Lymphocytes 5.4 % (21.0-51.0); %Monocytes 3.2 % (0.0-10.0); Mean Corpuscular HGB CONC 31.5 g/dL (32.0-36.0); Mean Corpuscular Hemoglobin 28.9 pg (27.0-31.0); Mean Corpuscular Volume 91.9 fL (78.0-98.0); Mean Platelet Volume 7.8 fL (7.4-10.4); Platelet Count 391 thou/uL (130-400); RBC Distribution Width 13.3 % (11.5-14.5); Red Blood Cell (RBC) Count 3.81 mill/uL (4.20-5.40); White Blood Cell (WBC) Count 13.7 thou/uL (4.8-10.8)
[2018-10-11 13:55] LABS: Prothrombin Time 13.6 SEC (12.0-14.7)
[2018-10-11 14:02] LABS: ALT (SGPT) 13 U/L (8-55); AST (SGOT) 23 U/L (5-34); Albumin 3.6 g/dL (3.4-4.8); Alkaline Phosphatase 150 U/L (40-150); Anion Gap 20 mmol/L (10-20); BUN (Urea Nitrogen) 37 mg/dL (9.8-20.1); Bilirubin, Total 0.3 mg/dL (0.2-1.2); Calc. Creatinine Clearance 0 mL/min (70-130); Calcium 9.1 mg/dL (7.8-10.44); Carbon Dioxide 18 mmol/L (23-31); Chloride 103 mmol/L (98-107); Estimated GFR-MDRD 16; Globulin 2.7 g/dL (2.4-3.5); Glucose 454 mg/dL (80-115); Potassium 5.4 mmol/L (3.5-5.1); Protein, Total 6.3 g/dL (6.0-8.3); Sodium 136 mmol/L (136-145)
[2018-10-11] MEDS ORDERED: Insulin Regular 300 UNITS/3 ML VIAL ONE (14:50)
[2018-10-11] MEDS ORDERED: hydrALAZINE 20 MG/ML VIAL ONE (14:51)
--- NOTE | 2018-10-11 14:55 | CT ---
CTA HEAD WITH CONTRAST: Date; 10/11/18 Multiple axial tomograms obtained through head following angio protocol with multiplanar reconstructi on and 3D postprocessing. INDICATION: Mental status change. FINDINGS: The intracranial internal carotid arteries are patent. However, there is luminal narrowing in the pre cavernous segment of both intracranial internal carotid arteries. The degree of luminal narrowing and atherosclerotic change is symmetric. Atherosclerotic change seen at the cavernous portion of both ICAs with mild luminal narrowing bilater ally. Both M1 segments are patent and symmetric. No evidence of proximal stenosis or occlusion. The M2 and M3 branches appear symmetric. Basilar artery is patent. Posterior cerebral arteries are patent and symmetric. IMPRESSION: Atherosclerotic changes seen in intracranial portions of both internal carotid arteries with luminal narrowing in the precavernous and cavernous portions of both ICAs, which appear symmetric. CTA NECK: Multiple axial tomograms obtained through neck with IV enhancement following angio protocol. Multipla crystal reconstruction and 3D postprocessing. FINDINGS: Atherosclerotic changes in the aorta arch noted. This appears to produce significant stenosis at the origin of the innominate artery. No definite stenosis seen at the origin of the left common carotid. Both common carotids are otherwise patent. There is mild atherosclerotic change seen bilaterally with out significant common carotid artery stenosis. Prominent atherosclerotic calcifications seen in the left bulb and proximal left ICA. Motion artifact degrades evaluation at this location; however, the stenosis does appear to be hemodynamically signif icant in the proximal left internal carotid artery. Degree of stenosis is estimated at 70-80% diamete r stenosis. There is also atherosclerotic change at the right bulb and proximal right ICA. This also produces hem odynamically significant stenosis at the origin of the right ICA estimated in 60-70% diameter stenosi s. Vertebral arteries are patent. There is a dominant left vertebral. IMPRESSION: Significant stenosis at the origin of both internal carotid arteries as described above. POS: TPC
--- NOTE | 2018-10-11 14:57 | RAD ---
PORTABLE CHEST: Date: 10/11/18 INDICATION: Mental status change. COMPARISON: 11/13/14. FINDINGS: Mild cardiomegaly. Mild vascular congestion. Interstitial prominence may represent mild edema. No con fluent infiltrate. Densely calcified nodule in the left peripheral lung is unchanged in appearance. IMPRESSION: Question mild congestive change with interstitial congestion. POS: TPC
[2018-10-11 14:59] LABS: CKMB 10.8 ng/mL (0-6.6)
[2018-10-11 15:49] LABS: Bilirubin Negative (Negative); Blood, Urine Moderate (Negative); Clarity CLEAR (Clear); Glucose, Urine (Dipstick) >=1000 mg/dL (Negative); Leukocyte Negative (Negative); Nitrite Negative (Negative); Protein, Urine (Dipstick) 300 mg/dL (Neg-Trace); Specific Gravity, Urine 1.025 (1.002-1.036); Urobilinogen 0.2 mg/dL (0.2-1.0)
[2018-10-11 15:51] LABS: Bacteria/HPF None Seen HPF (None Seen); Hyaline Casts/LPF 7-10 HYALINE CAST LPF (0-3 Hyaline); Pathc Cast-AUWi Flag 1.76 (0-2.49); Squamous Epithelial 0-3 HPF (0-3); WBC/HPF 0-3 HPF (0-3)
[2018-10-11 15:57] LABS: Renal Epithelial None Seen HPF (0-3); Transitional Epithelial NONE SEEN HPF (0-3)
[2018-10-11 17:07] LABS: Anion Gap 17 mmol/L (10-20); BUN (Urea Nitrogen) 36 mg/dL (9.8-20.1); Calc. Creatinine Clearance 0 mL/min (70-130); Calcium 9.4 mg/dL (7.8-10.44); Carbon Dioxide 20 mmol/L (23-31); Chloride 107 mmol/L (98-107); Estimated GFR-MDRD 17; Glucose 170 mg/dL (80-115); Potassium 4.5 mmol/L (3.5-5.1); Sodium 139 mmol/L (136-145)
[2018-10-11] MEDS ORDERED: Zolpidem Tartrate 5 MG TAB PO PRN (18:42)
[2018-10-11] MEDS ORDERED: Acetaminophen 325 MG TAB PO PRN (18:42)
[2018-10-11] MEDS ORDERED: cloNIDine 0.1 MG TAB PO PRN (18:42)
[2018-10-11] MEDS ORDERED: Ondansetron PF 4 MG/2 ML Vial IVP PRN (18:42)
[2018-10-11] MEDS ORDERED: Dextrose 50% Abboject 50 ML SYRINGE SLOW IVP PRN (18:53)
[2018-10-11] MEDS ORDERED: HumaLOG 300 UNITS/3 ML VIAL SC PRN (18:53)
[2018-10-11] MEDS ORDERED: Dextrose 5% in Water 1,000 ML IV PRN (18:53)
[2018-10-11] MEDS ORDERED: Sodium Chloride 0.9% 1,000 ML IV SCH (19:00)
[2018-10-11] MEDS ORDERED: Haloperidol Lactate 5 MG/ML VIAL ONE (19:12)
[2018-10-11] MEDS ORDERED: Aspirin 81 mg Enteric Coated Tablet PO SCH (19:15)
[2018-10-11] MEDS ORDERED: Haloperidol Lactate 5 MG/ML VIAL IM SCH (19:45)
[2018-10-11 20:18] LABS: Amphetamine Not Detected (NotDetected); Barbiturates Screen Not Detected (NotDetected); Benzodiazepine Screen Not Detected (NotDetected); Cocaine Metabolite Screen Not Detected (NotDetected); Medtox Control Line Valid? VALID (VALID); Medtox Reader # READER 1; Methadone Not Detected (NotDetected); Methamphetamine Not Detected (NotDetected); Opiate Screen Not Detected (NotDetected); Oxycodone Screen Not Detected (NotDetected); Phencyclidine (PCP) Not Detected (NotDetected); THC/Cannabinoid Screen Not Detected (NotDetected); Tricyclic Screen Not Detected (NotDetected)
[2018-10-11 21:09] LABS: Lactic Acid 2.3 mmol/L (0.5-2.2)
[2018-10-11] MEDS: Insulin Glargine 5 UNITS in Pre-Filled Syringe 1 EACH SC SCH (21:32)
--- NOTE | 2018-10-11 22:07 | CON ---
DATE OF CONSULTATION: 10/11/2018 HISTORY OF PRESENT ILLNESS: The patient is a 68-year-old female with a past medical history of coronary artery disease, CHF, COPD, chronic kidney disease, hypertension, hyperlipidemia, type-2 diabetes, history of CVA, carotid stenosis, who presented to the emergency department per EMS today after the patient was found down in her home by Home Health. The patient was last seen normal per Home Health last night. Stroke protocol was activated on arrival, and the patient had a noncontrast CT of head, which was notable for a small right-sided subdural hematoma without any evidence of midline shift or mass effect. There is an old stroke on the right, and she has a significantly atrophic brain, but these are not new findings. Neurosurgery was consulted for further evaluation of the patient's subdural hematoma. The patient was last seen in the ER on 09/18/2018 and admitted following a syncopal episode at that time, she suffered a head injury at that time as well. Her medication list from 09/19/2018 did not show any anticoagulants, but I am unable to verify this at this time secondary to the patient's condition. Her platelet level is normal at 391. PT, PTT, and INR are also number appearing. The patient does have multiple metabolic abnormalities on her additional lab work including an elevated troponin, an elevated BNP, an elevated potassium of 5.4, acute kidney injury, hyperglycemia of 454, as well as positive for ketones. PAST MEDICAL HISTORY: 1. Coronary artery disease. 2. Carotid stenosis. 3. Hypertension. 4. Hyperlipidemia. 5. Congestive heart failure. 6. Diabetes. 7. COPD. PAST SURGICAL HISTORY: No prior surgeries. ALLERGIES: THE PATIENT IS ALLERGIC TO VALIUM, OXYCODONE, PNEUMOCOCCAL VACCINE, HUMAN ALBUMIN, AND DIAZEPAM. REVIEW OF SYSTEMS: Unobtainable secondary to the patient's condition. PHYSICAL EXAMINATION: VITAL SIGNS: Pulse is 134, BP is 162/114, respiration rate is 20, the patient is 100% on room air, temperature is 97.5. CONSTITUTIONAL: The patient currently has a GCS of 10. She opens her eyes spontaneously, is moaning, and withdraws to pain. HEENT: Head; normocephalic and atraumatic. Eyes; PERRLA. Extraocular movements intact. ENT; oral mucosa is dry. The patient is moaning. No clear words are formed. NECK: She is moving her neck spontaneously. No evidence of meningismus or nuchal rigidity. RESPIRATORY: Symmetric chest expansion. No evidence of dyspnea. CARDIOVASCULAR: She is tachycardic. MUSCULOSKELETAL: No obvious deformities. Symmetric pulses throughout. She is moving all 4 spontaneously. NEURO: She is not oriented to person, place, or time. She is not following commands. The patient is moaning. Her eyes open spontaneously. She withdraws to pain. ASSESSMENT AND PLAN: This is a 68-year-old female brought to the emergency department for altered mental status after being found down by Home Health. CT does reveal a small-sided right subdural hematoma and an old right-sided infarct. This small right-sided subdural does not appear to be causing any midline shift or mass effect. The patient has multiple metabolic abnormalities and I feel that this is likely the source of her current state. We have no plans for surgical intervention at this time. I discussed these findings with Dr. Santos and he also reviewed the patient's imaging and agrees that her current right subdural hematoma is not causing her current symptoms and not surgical in nature. Please reach out to neurosurgery for additional questions or concerns. Job ID: [id number]
[2018-10-11 22:44] LABS: Hemoglobin A1c 5.7 % (4.0-6.0)
[2018-10-11 23:02] LABS: Troponin I 19.595 ng/mL (< 0.028)
[2018-10-11] MEDS ORDERED: Enoxaparin Sodium 40 MG/0.4 ML SYRINGE SC SCH (23:45)
[2018-10-11] MEDS ORDERED: Metoprolol Tartrate 5 MG/5 ML VIAL ONE (23:56)
[2018-10-11] MEDS ORDERED: Morphine 4 MG/ML VIAL ONE (23:57)
--- NOTE | 2018-10-12 00:33 | PDOC.EVN ---
Event Note - Event Note Event Note: paged by rn pt has high troponin, unable to give anticoagulation due to recent subdural hematoma, and high risk for bleeding, added BB, morphine, Nitroglycerine patch, we will monitor closely, extremely poor prognosis , pt at high risk for complications including .
[2018-10-12] MEDS ORDERED: Nitroglycerin 2% Ointment 1 INCH/1 GM Packet ONE (00:42)
[2018-10-12] MEDS ORDERED: diphenhydrAMINE 50 MG/ML VIAL IVP SCH (01:00)
[2018-10-12] MEDS ORDERED: Morphine 4 MG/ML VIAL SLOW IVP SCH ×2 (01:00→05:45)
[2018-10-12] MEDS ORDERED: Metoprolol Tartrate 5 MG/5 ML VIAL IVP SCH (01:00)
--- NOTE | 2018-10-12 01:03 | HP ---
CHIEF COMPLAINT: Altered mental status. HISTORY OF PRESENT ILLNESS: This is a 68-year-old female, who arrives in the emergency room with history of mental status changes. The patient's family is not at bedside. There is a phone number for and Ms. Chaidez, . No one picked up the phone when the call was placed. History is basically obtained from chart review of prior admissions, discharge summary reviews as well as whatever history ER was able to collect. Per ER, the patient apparently had altered mental status and brought to the ER by EMS. The patient does have a past medical history of coronary artery disease, chronic kidney disease stage IV, significant vascular disease, hypertension, hyperlipidemia, as well as anemia. No other history is available at this point in time for the patient as she is basically not really talking and appears very confused. REVIEW OF SYSTEMS: Not possible given the patient's condition. PAST MEDICAL HISTORY: As per HPI. SOCIAL HISTORY: Unable to obtain. FAMILY HISTORY: Unknown. HOME MEDICATIONS: See MAR. PHYSICAL EXAMINATION: VITAL SIGNS: Blood pressure is 108/88, temperature of 98, respiratory rate of 18, heart rate of 88. GENERAL: The patient lying in bed in Trendelenburg position, is really confused and not making any sense. HEENT: Pupils are equal, round, and reactive to light and accommodation. Oral cavity moist and pink. NECK: Supple, mobile, nontender. Thyroid appreciated. CARDIOVASCULAR: Borderline sinus tachycardia. Faint systolic murmur. No rubs or gallops appreciated. PULMONARY: Coarse breath sounds, although difficult to auscultate as the patient keeps moaning and randomly saying non sensible words. ABDOMEN: Positive bowel sounds. Soft, nontender, and nondistended. Bilateral flank ecchymosis. EXTREMITIES: Reveal multiple bruising in different stages. Trace edema and 2+ peripheral pulses. NEUROLOGICAL: The patient is really confused, making nonsensical verbal sounds, not following commands. LABORATORY DATA: Reviewed. CBC, BMP, PT, INR, UA, as well as beta hydroxybutyric acid. ASSESSMENT: 1. Altered mental status. 2. Significant vascular disease. 3. Diabetes mellitus type 2, uncontrolled. 4. Metabolic anion gap acidosis likely secondary to underlying kidney disease, as well as some mild component of diabetic ketoacidosis. 5. Lactic acidosis. 6. Rhabdo with an elevated CK. 7. Glucosuria with proteinuria. 8. Hyperlipidemia. 9. Coronary artery disease. 10. Hypertension. PLAN: At this point in time, the patient appears to have a significantly guarded prognosis given unknown baseline mental function. No family available either. We will put the patient in the IMCU. Start the patient on a sliding scale insulin, as well as Lantus 5 units for now. We will check an A1c and adjust blood sugars as appropriate. Currently, the last check on blood sugar was 170 after one bolus of 15 units of insulin in the ER. We will repeat lactic acid levels in the morning. We will provide the patient with normal saline at 75 mL. We will obtain echocardiogram as well. Consult placed to Vascular Surgery given hemodynamically significant plaques noted on imaging studies. We will also call Neurology as well. The patient follows up with Dr. White for Nephrology, will consult Renal Services as well. Target blood pressure systolic 120 to 140. Default code will be a full code given that the patient is unresponsive. Of note, ER had a discussion with Neurosurgery, who stated that there was nothing needed from neurosurgical perspective for now. The patient's condition again is stable. Prognosis guarded. We will adjust plan of care as the workup returns as well as if the family is able to contact us or we are able to contact family to obtain a better history. Job ID: [id number]
[2018-10-12] MEDS: Atorvastatin Calcium 40 MG TAB PO SCH ×2 (02:15→21:19)
[2018-10-12] MEDS: Nitroglycerin 2% Ointment 1 INCH/1 GM Packet TOP SCH ×6 (02:17→17:56)
[2018-10-12 05:53] LABS: #Lymphocytes 1.6 thou/uL (1.20-3.40); #Monocytes 1.5 thou/uL (0.11-0.59); #Neutrophils 12.8 thou/uL (1.40-6.50); %Basophils 0.2 % (0.0-1.0); %Lymphocytes 10.2 % (21.0-51.0); %Monocytes 9.4 % (0.0-10.0); %Neutrophils 80.1 % (42.0-75.0); Hemoglobin 11.6 g/dL (12.0-16.0); Mean Corpuscular HGB CONC 31.5 g/dL (32.0-36.0); Mean Corpuscular Hemoglobin 28.7 pg (27.0-31.0); Mean Corpuscular Volume 91.1 fL (78.0-98.0); Mean Platelet Volume 7.9 fL (7.4-10.4); Platelet Count 367 thou/uL (130-400); RBC Distribution Width 13.4 % (11.5-14.5); Red Blood Cell (RBC) Count 4.03 mill/uL (4.20-5.40)
[2018-10-12 06:14] LABS: Lactic Acid 1.7 mmol/L (0.5-2.2)
[2018-10-12 06:18] LABS: Anion Gap 18 mmol/L (10-20); BUN (Urea Nitrogen) 40 mg/dL (9.8-20.1); Calc. Creatinine Clearance 17 mL/min (70-130); Calcium 9.3 mg/dL (7.8-10.44); Carbon Dioxide 20 mmol/L (23-31); Cardiac Risk 4.6 (Less than 4.5); Chloride 107 mmol/L (98-107); Cholesterol 251 mg/dl (< 200 Desired); Estimated GFR-MDRD 17; Glucose 196 mg/dL (80-115); HDL Cholesterol 55 mg/dL (>60 Neg Risk); LDL Cholesterol, Calculated 160 mg/dL; Sodium 140 mmol/L (136-145); Triglycerides 182 mg/dL (Less than 150)
[2018-10-12] MEDS: HumaLOG 300 UNITS/3 ML VIAL SC PRN (06:27)
[2018-10-12 07:03] LABS: Troponin I 86.851 ng/mL (< 0.028)
[2018-10-12] MEDS ORDERED: Aspirin 300 MG Suppository PR SCH (09:00)
--- NOTE | 2018-10-12 11:34 | CON ---
DATE OF CONSULTATION: 10/12/2018 CONSULTING PHYSICIAN: Uche Morales DO REASON FOR CONSULT: Acute on chronic kidney disease. REASON FOR ADMISSION: Altered mentation. HISTORY OF PRESENT ILLNESS: A 68-year-old female with history of chronic kidney disease, CHF, coronary artery disease, COPD, hypertension, hyperlipidemia, type 2 diabetes, CVA, and hypothyroidism, came to the hospital with altered mentation. The patient is not able to give a good history and most of the records were obtained from review of the records. The patient has a sitter at the bedside. PAST MEDICAL HISTORY: Positive for CHF, coronary artery disease, COPD, CKD, hypertension, hyperlipidemia, type 2 diabetes, CVA, and hypothyroidism. PAST SURGICAL HISTORY: Cardiac catheterization. HOME MEDICATIONS: Reviewed. ALLERGIES: MULTIPLE INCLUDING ALBUMIN, PNEUMOCOCCAL VACCINE, DIAZEPAM, OXYCODONE, PREGABALIN, AND SIMVASTATIN. SOCIAL HISTORY: No smoking, alcohol, or illicit drug abuse. FAMILY HISTORY: No history of kidney disease. REVIEW OF SYSTEMS: Could not be obtained due to altered mentation. PHYSICAL EXAMINATION: GENERAL: Elderly female, confused. VITAL SIGNS: Temperature 98.5, pulse 86, respiratory rate 18, and blood pressure 142/69. HEENT: Atraumatic and normocephalic. CV: S1 and S2 heard. RESPIRATORY: Clear. GI: Abdomen is soft. MUSCULOSKELETAL: 1+ edema. DERMATOLOGIC: No skin rash. NEUROLOGIC: Confused. LABORATORY DATA: Hemoglobin is 11.6. Potassium is 5.0, BUN is 40, and creatinine is 2.8. ASSESSMENT AND PLAN: 1. Acute kidney injury on chronic kidney stage 4. Seems to have some improvement in renal function. 2. Altered mentation, less likely from uremia. 3. History of hypertension. 4. Mild hyperkalemia. 5. Mild anemia. 6. Non-ST elevation myocardial infarction. 7. Prognosis guarded. No acute indication for dialysis. We will follow. Job ID: [id number]
--- NOTE | 2018-10-12 11:57 | PDOC.PN ---
- Subjective Encounter Start Date: 10/12/18 Encounter Start Time: 11:55 Patient seen and examined, had an IL post admission yesterday, no changes in status otherwise. The facility where she lives was contacted as the number was found, they are bringing an out of hospital DNR for the patient. Will change code status to DNR. - Objective Vital Signs & Weight: Vital Signs (12 hours) Temp Pulse Ox 10/12/18 10:40 99.0 F 10/12/18 08:18 100 10/12/18 07:11 98.5 F 10/12/18 04:00 97.7 F 10/12/18 00:00 98.0 F Weight Weight 120 lb Most Recent Monitor Data Heart Rate from ECG 116 NIBP 173/97 NIBP BP-Mean 122 Respiration from ECG 30 SpO2 98 Result Diagrams: 10/12/18 05:43 10/12/18 05:43 Additional Labs: Accuchecks 10/12/18 10/12/18 10/12/18 10:26 05:37 01:00 POC Glucose 126 H 205 H 212 H 10/11/18 10/11/18 20:30 13:37 POC Glucose 257 H 406 H Phys Exam - Physical Examination Constitutional: NAD HEENT: PERRLA, moist MMs, sclera anicteric Neck: no nodes, no JVD, supple Respiratory: no wheezing, no rales, no rhonchi tachycardic - sinus systolic ejection murmur 2/6 Gastrointestinal: soft, non-tender Musculoskeletal: no edema, pulses present Dx/Plan (1) NSTEMI (non-ST elevated myocardial infarction) Code(s): I21.4 - NON-ST ELEVATION (NSTEMI) MYOCARDIAL INFARCTION Status: Acute (2) Subdural hematoma Code(s): S06.5X9A - TRAUM SUBDR HEM W LOC OF UNSP DURATION, INIT Status: Acute (3) Altered mental state Code(s): R41.82 - ALTERED MENTAL STATUS, UNSPECIFIED Status: Acute (4) CHF exacerbation Code(s): I50.9 - HEART FAILURE, UNSPECIFIED Status: Acute (5) COPD exacerbation Code(s): J44.1 - CHRONIC OBSTRUCTIVE PULMONARY DISEASE W (ACUTE) EXACERBATION Status: Acute (6) Chest pain Code(s): R07.9 - CHEST PAIN, UNSPECIFIED Status: Acute - Plan * Change code status to DNR * overall very poor prognosis * unable to provide NSTEMI treatments due to brain bleed * [facility] being contacted, josé ruiz from hospice in patient * no other changes in plan of care
--- NOTE | 2018-10-12 13:52 | CON ---
DATE OF CONSULTATION: HISTORY: Ms. Pacheco is a 68-year-old woman, who was admitted after being found down for an unknown period of time at home with mental status changes. I was asked to see her because she had a CT angiogram of her neck performed, which shows bilateral significant carotid disease. Currently, the patient is essentially unresponsive. She has grunting and that is her only response to any stimulation. She is lying in bed apparently comfortable with her eyes closed. I have reviewed her chart, history and physical, which was obtained from a review of the chart. She apparently has a past medical history that is significant for coronary artery disease, chronic renal insufficiency, peripheral vascular disease, hypertension, hyperlipidemia, and anemia. The remainder of her history is unknown. PAST MEDICAL HISTORY: As above. PAST SURGICAL HISTORY: Unknown. CURRENT MEDICATIONS: Unknown. ALLERGIES: UNKNOWN. ASSESSMENT/PLAN: Given the patient's current condition, I would not consider her for any surgical intervention for any reason. Job ID: [id number]
[2018-10-12] MEDS: Lorazepam 2 MG/ML VIAL SLOW IVP PRN (20:46)
[2018-10-12] MEDS: Insulin Glargine 5 UNITS in Pre-Filled Syringe 1 EACH SC SCH (20:52)
--- NOTE | 2018-10-12 23:28 | CON ---
DATE OF CONSULTATION: 10/12/2018 IMPRESSION: 1. Transient encephalopathy, likely secondary to acute myocardial infarction. 2. Prior right MCA stroke with old subdural hematoma. 3. Left internal carotid stenosis of 70% to 80%, and right of 70%. 4. Echocardiogram shows depressed ejection fraction of 20% to 25%. PLAN: As per cardiology's wishes. HISTORY OF PRESENT ILLNESS: Ms. Pacheco was previously seen for her stroke. She was admitted after being found poorly responsive. She had not been seen for 2 days. Her workup has showed multiple issues as documented above. Her troponins have progressively risen, as well as her BNP. She has been diagnosed with an acute [place]. Cardiology is hesitant to heparinize her due to chronic subdural. Neurosurgery did not feel there was any need for intervention from the standpoint of this subdural. She was quite unresponsive for most of the day according to the nursing staff. She is now awakened and is answering questions and following commands. I do not see anything focal on exam. Nephrology is treating her renal insufficiency conservatively. She otherwise appears to be metabolically stable. I do not have anything to add at this point, but would continue antiplatelet therapy and a statin. Job ID: [id number]
[2018-10-13] MEDS: Nitroglycerin 2% Ointment 1 INCH/1 GM Packet TOP SCH ×4 (00:18→17:57)
--- NOTE | 2018-10-13 00:27 | CON ---
DATE OF CONSULTATION: 10/12/2018 REASON FOR CONSULTATION: Coronary artery disease, increased troponin, carotid arterial disease. PRIMARY SENIOR DENTIST: Jerad Borges MD. HISTORY OF PRESENT ILLNESS: Ms. Pacheco is a pleasant 68-year-old woman. She was brought to the hospital yesterday with confusion and disorientation. She has been found to have severe bilateral carotid arterial disease and the patient is extremely confused and disoriented, but it seems to have improved this afternoon. She denies chest pain or pressure. PAST MEDICAL HISTORY: She did have a history of severe coronary artery disease. Did undergo cardiac catheterization by Dr. Nance, showing severe three-vessel coronary artery disease. Also has bilateral carotid arterial disease. REVIEW OF SYSTEMS: Not reliable due to her confusion and disorientation. PHYSICAL EXAMINATION: GENERAL: Now, this is a chronically ill-appearing 68-year-old woman. She is becoming more oriented. VITAL SIGNS: Her blood pressure is 171/86, pulse is 110 and sinus. LUNGS: Clear. CARDIAC: Normal S1, normal S2. ABDOMEN: Soft, nontender. EXTREMITIES: Warm and dry. No clubbing or cyanosis. There is no edema. SKIN: Warm and dry. PERTINENT LABORATORY DATA: Creatinine is 2.8, potassium 5.0. IMAGING STUDIES: The echocardiogram revealed ejection fraction 20% to 25%, apex akinetic, inferior akinetic, [id number] mitral regurgitation. EKG; normal sinus rhythm, possible lateral ischemia. ASSESSMENT: 1. Carotid arterial disease. 2. Severe coronary artery disease. 3. Depressed left ventricular function. 4. Congestive heart failure, chronic. 5. Non-ST elevation myocardial infarction. PLAN: The initial evaluation today indicated that due to her confusion, there would be not a lot of aggressive therapy. This may need to be reconsidered tomorrow if she continues to improve. Dr. Borges to see the patient tomorrow. Job ID: [id number] [facility]
[2018-10-13] MEDS ORDERED: Sodium Chloride 0.9% 500 ML IV SCH (02:45)
--- NOTE | 2018-10-13 06:41 | PDOC.CTH ---
Cardiology Progress Note - Subjective Difficult to arouse this am - Objective Vital Signs Temp Pulse Ox 10/13/18 03:21 97.2 F L 10/12/18 23:53 97.8 F 10/12/18 20:00 100 10/12/18 19:44 99.2 F Weight 120 lb 10/11/18 10/12/18 10/13/18 06:59 06:59 06:59 Intake Total 225 Balance 225 - Physical Examination General/Neuro: NAD Neck: no JVD present Lungs: CTA, unlabored respirations Heart: PMI normal, RRR Abdomen: NT/ND, soft Extremities: + femoral B - Labs Result Diagrams: 10/12/18 05:43 10/12/18 05:43 Troponin/CKMB CK-MB (CK-2) 10.8 ng/mL (0-6.6) H* 10/11/18 13:38 Troponin I 86.851 ng/mL (< 0.028) H* 10/12/18 05:43 - Assessment/Plan Encephalopathy NQWMI Ischemic CM Old subdural hematoma CKD Severe PVD Severe carotid disease Very difficult situation; not felt to be an operative candidate I reviewed cath from 2014. Pt at that time was felt to be inoperable. Pt also with severe carotid disease and felt to be inoperable Conservative treatement
--- NOTE | 2018-10-13 08:37 | PDOC.CTH ---
Cardiology Progress Note - Subjective Difficult to arouse this am - Objective Vital Signs Temp 10/13/18 03:21 97.2 F L 10/12/18 23:53 97.8 F Weight 120 lb 10/12/18 10/13/18 10/14/18 06:59 06:59 06:59 Intake Total 225 Balance 225 - Physical Examination General/Neuro: NAD Neck: no JVD present Lungs: CTA, unlabored respirations Heart: PMI normal, RRR Abdomen: NT/ND, soft Extremities: + femoral B - Labs Result Diagrams: 10/12/18 05:43 10/12/18 05:43 Troponin/CKMB CK-MB (CK-2) 10.8 ng/mL (0-6.6) H* 10/11/18 13:38 Troponin I 86.851 ng/mL (< 0.028) H* 10/12/18 05:43
--- NOTE | 2018-10-13 11:27 | PDOC.PN ---
- Subjective Encounter Start Date: 10/13/18 Encounter Start Time: 11:25 Patient seen and examined, states she's having chest pain. No family at bedside. AAO to person and place only for now. - Objective Resuscitation Status - Order Detail: 10/12/18 12:00 Resuscitation Status Routine Resuscitation Status: DNAR: NO Resuscitation Discussed with: see out of hospital DNR Vital Signs & Weight: Vital Signs (12 hours) Temp 10/13/18 03:21 97.2 F L 10/12/18 23:53 97.8 F Weight Weight 120 lb Most Recent Monitor Data Heart Rate from ECG 103 NIBP 159/90 NIBP BP-Mean 113 Respiration from ECG 18 SpO2 97 I&O: 10/12/18 10/13/18 10/14/18 06:59 06:59 06:59 Intake Total 225 Balance 225 Result Diagrams: 10/12/18 05:43 10/12/18 05:43 Additional Labs: Accuchecks 10/13/18 10/12/18 10/12/18 06:13 20:50 16:16 POC Glucose 146 H 183 H 142 H Phys Exam - Physical Examination mild distress HEENT: PERRLA, moist MMs, sclera anicteric Neck: no nodes, no JVD, supple Respiratory: no wheezing, no rales tachycardia systolic murmur Gastrointestinal: soft, non-tender, no distention, positive bowel sounds Musculoskeletal: no edema, pulses present Dx/Plan (1) NSTEMI (non-ST elevated myocardial infarction) Code(s): I21.4 - NON-ST ELEVATION (NSTEMI) MYOCARDIAL INFARCTION Status: Acute (2) Subdural hematoma Code(s): S06.5X9A - TRAUM SUBDR HEM W LOC OF UNSP DURATION, INIT Status: Acute (3) Altered mental state Code(s): R41.82 - ALTERED MENTAL STATUS, UNSPECIFIED Status: Acute (4) CHF exacerbation Code(s): I50.9 - HEART FAILURE, UNSPECIFIED Status: Acute (5) COPD exacerbation Code(s): J44.1 - CHRONIC OBSTRUCTIVE PULMONARY DISEASE W (ACUTE) EXACERBATION Status: Acute (6) Chest pain Code(s): R07.9 - CHEST PAIN, UNSPECIFIED Status: Acute - Plan * morphine for pain * hospice evaluation being done, patient DNR * will to pain control medications for now as well as current medical management * antiplatelet + anticoagulation not possible given brain bleed * on statin * overall prognosis is very poor
--- NOTE | 2018-10-13 11:47 | PRG ---
DATE OF SERVICE: 10/13/2018 SUBJECTIVE: The patient was seen and examined at bedside and she is somnolent and not waking this morning. OBJECTIVE: GENERAL: This is an elderly female, somnolent. VITAL SIGNS: Temperature 97.2. Heart rate 103. Respiratory rate 18. Blood pressure . HEENT: Atraumatic and normocephalic. CARDIOVASCULAR: S1 and S2 heard. RESPIRATORY: Clear. GASTROINTESTINAL: Abdomen is soft. MUSCULOSKELETAL: No edema. DERMATOLOGIC: No skin rash. NEUROLOGIC: LABORATORY DATA: Not done today. ASSESSMENT AND PLAN: 1. Acute kidney injury on chronic kidney disease stage 4. 2. Altered mentation, somnolent today. 3. History of hypertension. 4. Hyperkalemia. 5. Non-ST elevation myocardial infarction. 6. Prognosis guarded. We will follow. Job ID: [id number]
[2018-10-13] MEDS ORDERED: Metoprolol Tartrate 5 MG/5 ML VIAL IVP PRN (11:48)
[2018-10-13] MEDS: Morphine 4 MG/ML VIAL SLOW IVP PRN ×3 (12:18→21:49)
--- NOTE | 2018-10-13 15:40 | PDOC.EVN ---
Event Note - Event Note Event Note: DC SUMMARY #[id number]
[2018-10-13] MEDS: Insulin Glargine 5 UNITS in Pre-Filled Syringe 1 EACH SC SCH (21:14)
[2018-10-13] MEDS: Atorvastatin Calcium 40 MG TAB PO SCH (21:14)
--- NOTE | 2018-10-13 22:20 | DIS ---
DATE OF ADMISSION: 10/11/2018 DATE OF DISCHARGE: 10/13/2018 HOSPITAL COURSE: This is a 68-year-old female, found down now for 48 hours prior to coming to the hospital. The patient's family history obtained after close friends came by with medical [id number]. The patient initially was admitted with altered mental status with unknown medical history. The patient had been admitted to the [facility], was found to have a subdural bleed as well as a very, very significant AR. Troponin as high as 86. The patient was tachycardic with a brain bleed. Ejection fraction on the echocardiogram was 20% to 25% with apical akinetic and inferior akinetic alvarez, left atrium dilated. Patient arrangements were made for hospice care. Medical zsjtd-zs-pcudsman was able to be presented by bedside, letter of release was signed. Hospice arrangements made. The patient discharged to hospice once arrangements were made. ADMITTING DIAGNOSES: Altered mental status, non ST elevation myocardial infarction, subdural brain bleed, chronic, hypertension, diabetes mellitus. DISCHARGE DIAGNOSES: Inferior wall myocardial infarction, congestive heart failure, systolic, chronic subdural bleed, diabetes mellitus, hypertension. Case and plan discussed with medical [id number] at length. They understand and agree with this plan. Job ID: [id number]
[2018-10-14] MEDS: Nitroglycerin 2% Ointment 1 INCH/1 GM Packet TOP SCH ×5 (00:59→23:00)
[2018-10-14] MEDS: Lorazepam 2 MG/ML VIAL SLOW IVP PRN ×3 (02:00→22:52)
--- NOTE | 2018-10-14 09:28 | PRG ---
DATE OF SERVICE: 10/14/2018 SUBJECTIVE: Dr. Jansen following up on Dr. Borges's patient, Ms. Darlene Pacheco. She remains confused and disoriented. OBJECTIVE: VITAL SIGNS: Her blood pressure is 119/101, pulse is 120 and sinus with PACs. LUNGS: Clear. CARDIAC: She is tachycardic. ABDOMEN: Soft, nontender. ASSESSMENT: 1. Severe coronary artery disease. 2. Confusion and disorientation. PLAN: 1. The patient is receiving p.r.n. beta-blockers. 2. We will also give her oral beta-blockers if she is able to take those. Job ID: [id number]
--- NOTE | 2018-10-14 11:44 | PDOC.PN ---
- Subjective Encounter Start Date: 10/14/18 Encounter Start Time: 11:41 Patient seen and examined, difficult to arouse. - Objective Resuscitation Status - Order Detail: 10/12/18 12:00 Resuscitation Status Routine Resuscitation Status: DNAR: NO Resuscitation Discussed with: see out of hospital DNR Vital Signs & Weight: Vital Signs (12 hours) Temp Resp Pulse Ox 10/14/18 10:38 97.8 F 10/14/18 08:00 93 L 10/14/18 07:28 97.2 F L 10/14/18 03:13 97.8 F 10/14/18 00:00 14 94 L Weight Weight 116 lb 8 oz Most Recent Monitor Data Heart Rate from ECG 83 NIBP 117/58 NIBP BP-Mean 77 Respiration from ECG 15 SpO2 97 I&O: 10/13/18 10/14/18 10/15/18 06:59 06:59 06:59 Intake Total 225 95 Output Total 0 Balance 225 95 Result Diagrams: 10/12/18 05:43 10/12/18 05:43 Additional Labs: Accuchecks 10/14/18 10/14/18 10/13/18 10:24 06:06 20:33 POC Glucose 75 83 156 H 10/13/18 15:56 POC Glucose 156 H Phys Exam - Physical Examination Constitutional: NAD HEENT: PERRLA, moist MMs Neck: no nodes, no JVD, supple Respiratory: no wheezing, no rales, no rhonchi tachycardic systolic murmur Gastrointestinal: soft, non-tender, no distention Musculoskeletal: no edema, pulses present Dx/Plan (1) NSTEMI (non-ST elevated myocardial infarction) Code(s): I21.4 - NON-ST ELEVATION (NSTEMI) MYOCARDIAL INFARCTION Status: Acute (2) Subdural hematoma Code(s): S06.5X9A - TRAUM SUBDR HEM W LOC OF UNSP DURATION, INIT Status: Acute (3) Altered mental state Code(s): R41.82 - ALTERED MENTAL STATUS, UNSPECIFIED Status: Acute (4) CHF exacerbation Code(s): I50.9 - HEART FAILURE, UNSPECIFIED Status: Acute (5) COPD exacerbation Code(s): J44.1 - CHRONIC OBSTRUCTIVE PULMONARY DISEASE W (ACUTE) EXACERBATION Status: Acute (6) Chest pain Code(s): R07.9 - CHEST PAIN, UNSPECIFIED Status: Acute - Plan * DC Summary done yesterday as I was informed patient was going to hospice, however, upon further review, patient was denied inpatient hospice as she had a bedside sitter * at this point in time will reduce dosage of ativan from 2 to 0.5mg, cont with morphine * cardio following for NSTEMI, Echo shows EF of 20-25% with apical akinesis and inferior wall dysfunction * patient maintain BP likely with tachycardia * on statin + beta rochelle + nitro, d/w ICU team regarding antiplatelets, will defer decision to cardio and neuro Sx, patient has a chronic subdural bleed * overall prognosis is very poor * case d/w CM as well to see if perhaps the inpatient hospice units in [place] may accept her? will monitor patient for now and consider removing the sitter in AM if she's a bit more stable and non-agitated * plan d/w nurse at length, nurse to call me if any issues.
--- NOTE | 2018-10-14 20:24 | CON ---
DATE OF CONSULTATION: 10/14/2018 SERVICE: Pulmonary Medicine. REASON FOR CONSULTATION: CU patient. HISTORY OF PRESENT ILLNESS: The patient is a 68-year-old white female with past medical history significant for heart disease and a chronic subdural hematoma. She presented to the hospital on 11 October 2018 with complaints of altered mentation. Ultimately, she was discovered to have a wiz-OG-sdboamcvh myocardial infarction. Echocardiogram demonstrated systolic heart failure. She was identified as having an enlarging chronic subdural hematoma. Because of this, she was not a candidate for any revascularization procedures. She became increasingly obtunded throughout the hospital stay. She is having intermittent episodes of agitation and desaturation. She was not a viable surgical candidate for revascularization. After discussions with the power of trademark attorney, it was decided that the patient would only be a candidate for comfort measures moving forward. As such, a consultation was placed for hospice. The plan is for the patient to be made comfortable. She is comfort care only moving forward, and no aggressive interventions will be performed. She was started on some Ativan and morphine to be used on a p.r.n. basis, but continued to have episodes of agitation. A bedside sitter was provided, and she was also put in restraints in order to protect herself from self injury. Because of this, she was not a candidate for inpatient hospice. She cannot provide any elements of the history. The medical power of trademark attorney believes that it would be in keeping with the patient's wishes that we transition over to comfort measures only. PAST MEDICAL HISTORY: 1. Chronic systolic heart failure. 2. Coronary artery disease. 3. Chronic obstructive pulmonary disease, severity not specified. 4. Chronic kidney disease, possibly stage 4. 5. Hypertension. 6. Dyslipidemia. 7. Type 2 diabetes mellitus. 8. History of stroke. 9. Peripheral vascular disease. 10. Hypothyroidism. PAST SURGICAL HISTORY: None. ALLERGIES: VALIUM, OXYCODONE, ALBUMIN, AND DIAZEPAM. MEDICATIONS: List of her inpatient medications was reviewed. No specific updates were made at this time. FAMILY HISTORY: Noncontributory. SOCIAL HISTORY: Unknown to me. REVIEW OF SYSTEMS: Cannot be obtained as the patient is currently obtunded. PHYSICAL EXAMINATION: VITAL SIGNS: Afebrile, pulse 102, blood pressure 116/51, respirations 15, and saturation 97% on 2 L nasal cannula. GENERAL: The patient is somnolent with a RASS of -2. HEENT: Normocephalic and atraumatic. Sclerae white. Conjunctivae pink. Oral mucosa is moist without lesions. LUNGS: Decent air entry. There is rhonchi present. There is a slightly prolonged expiratory phase, but I do not appreciate crackles. HEART: Normal rate and regular. ABDOMEN: Soft, nontender, and nondistended. Bowel sounds are positive. MUSCULOSKELETAL: No cyanosis or clubbing. No pitting in the bilateral lower extremities. NEUROLOGIC: Grossly nonfocal. LABORATORY DATA: WBC 16.0, hemoglobin 11.3, platelets 367,000. INR 1.0. Glucose ranges from 75 up to 159. Troponin was previously 86 and up trending the last time we checked it. Creatinine 2.81 and lactate 2.3. Liver function studies were essentially unremarkable. TSH was normal. Urinalysis was positive for glycosuria, ketonuria, and mild proteinuria. No red blood cells were identified, though the dipstick was positive. Urine drug screen is unremarkable. Beta-hydroxybutyric acid was marginally elevated. Blood cultures x2 and urine culture were unremarkable. IMAGING STUDIES: 1. Echocardiogram demonstrates 20% ejection fraction, akinetic apex, diastolic dysfunction. 2. [facility] [place] [facility] [place] demonstrates there is significant stenosis at the origin of both internal carotid arteries. Otherwise, no intracranial lesions are identified. 3. Chest x-ray demonstrates no acute cardiopulmonary abnormality. Interstitial fullness is present as well as pulmonary vascular congestion. No overt consolidating changes or effusions are present. 4. CT of brain demonstrates increase in size of the chronic right subdural hematoma without acute hemorrhage. ASSESSMENT: 1. Metabolic encephalopathy. 2. Acute hypoxic respiratory failure. 3. Lic-BO-ppufrkiwk myocardial infarction. 4. Coronary artery disease, severe, not a candidate for intervention. 5. Chronic systolic and diastolic heart failure. 6. Chronic kidney disease, advanced. 7. Peripheral vascular disease, severe. 8. Multisystem organ dysfunction. 9. Chronic subdural hematoma. DISCUSSION AND PLAN: Since it is in keeping with the patient's value structures to be on comfort measures only, based on what the medical power of attorneys are suggesting to us, I will go ahead and authorize her out of hospital DNR. The patient has end-stage vascular disease that has caused advanced heart failure and chronic kidney disease. She is not a surgical candidate for revascularization and she certainly cannot have any percutaneous coronary interventions given the severe risk that anti-platelet medications would pose to an enlarging , chronic subdural hematoma. We will escalate her p.r.n. medications of Ativan and morphine. From my perspective, she can be transitioned out of the IMCU to the medical unit while we await appropriate resources on her disposition. She remains a DNAR. When she transitions out of the IMCU, she will have no further requirements for pulmonary or critical care opinion and I will sign off. 70 minutes have been devoted to this patient in various activities. I personally reviewed all imaging studies and laboratory data noted within this document. For fifty percent of this time, I was interacting with the patient at the bedside or coordinating care with the care team. For the remainder of the time I was immediately available to the patient in the hospital unit. Job ID: [id number] MTDD
[2018-10-14] MEDS: Atorvastatin Calcium 40 MG TAB PO SCH (20:34)
[2018-10-14] MEDS: Insulin Glargine 5 UNITS in Pre-Filled Syringe 1 EACH SC SCH (20:46)
[2018-10-15] MEDS: Nitroglycerin 2% Ointment 1 INCH/1 GM Packet TOP SCH ×4 (06:02→23:47)
--- NOTE | 2018-10-15 07:31 | PRG ---
DATE OF SERVICE: 10/14/2018 SUBJECTIVE: The patient was seen and examined at bedside. The patient remains confused. OBJECTIVE: GENERAL: This is an elderly female, remains confused. VITAL SIGNS: Temperature 97.3, Pulse 107, respiratory rate 14, blood pressure 166/93. HEENT: Atraumatic, normocephalic. CV: S1 and S2 heard. RESPIRATORY: Clear. GASTROINTESTINAL: Abdomen non distended NEUROLOGIC: Confused. LABORATORY DATA: Not done today. ASSESSMENT: 1. Acute kidney injury on chronic kidney disease, stage 4. 2. Altered mentation. 3. Hypertension. 4. Hyperkalemia. 5. Non-ST elevation myocardial infarction. 6. Prognosis, guarded. We will follow. Job ID: [id number] MTDD
[2018-10-15] MEDS: Lorazepam 2 MG/ML VIAL SLOW IVP PRN (08:33)
[2018-10-15 12:13] LABS: Anion Gap 13 mmol/L (10-20); BUN (Urea Nitrogen) 57 mg/dL (9.8-20.1); Calc. Creatinine Clearance 14 mL/min (70-130); Calcium 8.8 mg/dL (7.8-10.44); Carbon Dioxide 24 mmol/L (23-31); Chloride 110 mmol/L (98-107); Estimated GFR-MDRD 14; Glucose 141 mg/dL (80-115); Potassium 4.3 mmol/L (3.5-5.1); Sodium 143 mmol/L (136-145)
--- NOTE | 2018-10-15 12:17 | PDOC.PN ---
- Subjective Encounter Start Date: 10/15/18 Encounter Start Time: 12:15 Patient seen and examined, no new issues, sitter at bedside, no family at bedside. - Objective Resuscitation Status - Order Detail: 10/12/18 12:00 Resuscitation Status Routine Resuscitation Status: DNAR: NO Resuscitation Discussed with: see out of hospital DNR Vital Signs & Weight: Vital Signs (12 hours) Temp Pulse Resp BP Pulse Ox 10/15/18 08:21 99.6 F 111 H 18 140/72 100 10/15/18 08:00 100 10/15/18 03:51 98.2 F 98 20 135/65 98 Weight Weight 116 lb 8 oz Most Recent Monitor Data Heart Rate from ECG 111 NIBP 155/92 NIBP BP-Mean 113 Respiration from ECG 14 SpO2 100 I&O: 10/14/18 10/15/18 10/16/18 06:59 06:59 06:59 Intake Total 95 1350 Output Total 0 Balance 95 1350 Result Diagrams: 10/12/18 05:43 10/15/18 11:45 Additional Labs: Accuchecks 10/15/18 10/14/18 10/14/18 05:10 19:23 16:20 POC Glucose 82 98 67 L Phys Exam - Physical Examination Constitutional: NAD HEENT: PERRLA, moist MMs, sclera anicteric Neck: no nodes, no JVD, supple Respiratory: no wheezing, no rales, no rhonchi Cardiovascular: RRR, no significant murmur, no rub Gastrointestinal: soft, non-tender, no distention, positive bowel sounds Musculoskeletal: no edema, pulses present Dx/Plan (1) NSTEMI (non-ST elevated myocardial infarction) Code(s): I21.4 - NON-ST ELEVATION (NSTEMI) MYOCARDIAL INFARCTION Status: Acute (2) Subdural hematoma Code(s): S06.5X9A - TRAUM SUBDR HEM W LOC OF UNSP DURATION, INIT Status: Acute (3) Altered mental state Code(s): R41.82 - ALTERED MENTAL STATUS, UNSPECIFIED Status: Acute (4) CHF exacerbation Code(s): I50.9 - HEART FAILURE, UNSPECIFIED Status: Acute (5) COPD exacerbation Code(s): J44.1 - CHRONIC OBSTRUCTIVE PULMONARY DISEASE W (ACUTE) EXACERBATION Status: Acute (6) Chest pain Code(s): R07.9 - CHEST PAIN, UNSPECIFIED Status: Acute - Plan * Pending placement at [facility], awaiting some paper work and signatures to be done * cont with comfort measures for now * no other changes in plan of care * case d/w CM * DC plans once hospice arranged.
--- NOTE | 2018-10-15 15:36 | PRG ---
DATE OF SERVICE: 10/15/2018 SUBJECTIVE: A 68-year-old female, being seen for acute kidney injury. The patient is nonverbal. OBJECTIVE: GENERAL: On examination, the patient is resting. VITAL SIGNS: Afebrile, pulse 90, breathing 16, blood pressure 131/70. HEAD: Normocephalic and atraumatic. NECK: Supple. No JVD. CHEST: Symmetrical and clear. CARDIAC: Shows S1 and S2. EXTREMITIES: Show no edema. LABORATORY DATA: Labs reviewed. ASSESSMENT AND PLAN: 1. Acute kidney injury on chronic kidney disease. 2. Multiorgan failure. I will sign off on this patient. Please reconsult as needed. Agree with hospice. Job ID: [id number]
[2018-10-15] MEDS: Insulin Glargine 5 UNITS in Pre-Filled Syringe 1 EACH SC SCH (20:55)
[2018-10-15] MEDS: Atorvastatin Calcium 40 MG TAB PO SCH (20:55)
[2018-10-16] MEDS: Nitroglycerin 2% Ointment 1 INCH/1 GM Packet TOP SCH ×4 (06:42→23:42)
--- NOTE | 2018-10-16 11:25 | PDOC.PN ---
- Subjective Encounter Start Date: 10/16/18 Encounter Start Time: 11:20 Patient seen and examined, no new issues or complaints. - Objective Resuscitation Status - Order Detail: 10/12/18 12:00 Resuscitation Status Routine Resuscitation Status: DNAR: NO Resuscitation Discussed with: see out of hospital DNR Vital Signs & Weight: Vital Signs (12 hours) Temp Pulse Resp BP BP Pulse Ox 10/16/18 08:00 100 10/16/18 07:15 98.5 F 80 16 163/72 H 100 10/16/18 06:32 167/77 H 10/16/18 05:38 82 16 130/61 10/16/18 03:51 97.9 F 85 16 123/60 93 L 10/15/18 23:48 98.2 F 86 12 174/87 H 99 Weight Weight 116 lb 8 oz Most Recent Monitor Data Heart Rate from ECG 111 NIBP 155/92 NIBP BP-Mean 113 Respiration from ECG 14 SpO2 100 I&O: 10/15/18 10/16/18 10/17/18 06:59 06:59 06:59 Intake Total 1350 360 Balance 1350 360 Result Diagrams: 10/12/18 05:43 10/15/18 11:45 Additional Labs: Accuchecks 10/16/18 10/16/18 10/15/18 11:03 05:37 19:46 POC Glucose 215 H 164 H 191 H 10/15/18 10/15/18 16:07 12:28 POC Glucose 126 H 207 H Phys Exam - Physical Examination Constitutional: NAD HEENT: PERRLA, moist MMs, sclera anicteric Neck: no nodes, no JVD, supple Respiratory: no wheezing, no rales, no rhonchi Cardiovascular: RRR, no rub systolic murmur /6 Gastrointestinal: soft, non-tender, no distention, positive bowel sounds Musculoskeletal: no edema, pulses present Dx/Plan (1) NSTEMI (non-ST elevated myocardial infarction) Code(s): I21.4 - NON-ST ELEVATION (NSTEMI) MYOCARDIAL INFARCTION Status: Acute (2) Subdural hematoma Code(s): S06.5X9A - TRAUM SUBDR HEM W LOC OF UNSP DURATION, INIT Status: Acute (3) Altered mental state Code(s): R41.82 - ALTERED MENTAL STATUS, UNSPECIFIED Status: Acute (4) CHF exacerbation Code(s): I50.9 - HEART FAILURE, UNSPECIFIED Status: Acute (5) COPD exacerbation Code(s): J44.1 - CHRONIC OBSTRUCTIVE PULMONARY DISEASE W (ACUTE) EXACERBATION Status: Acute (6) Chest pain Code(s): R07.9 - CHEST PAIN, UNSPECIFIED Status: Acute - Plan * patient is AAO x 3 today, states that she lives alone but has someone who can come by and help, patient was advised that she will need someone 05/01 with her given her significantly poor cardiac function * will continue current medical management for now, AMS resolved * will likely DC sitter in AM if patient remains oriented and stable for the next 24 hours * patient states she wants to remain DNR and also states she does want to continue with hospice care * will adjust plan of care based on patients clinical course of the next few days, hospice arrangements being worked on currently by CM * case and plan d/w patient at [facility], she understood and agreed with this plan.
[2018-10-16] MEDS: HumaLOG 300 UNITS/3 ML VIAL SC PRN (11:34)
[2018-10-16] MEDS: Atorvastatin Calcium 40 MG TAB PO SCH (20:39)
[2018-10-16] MEDS: Insulin Glargine 5 UNITS in Pre-Filled Syringe 1 EACH SC SCH (20:40)
[2018-10-17] MEDS: Lorazepam 2 MG/ML VIAL SLOW IVP PRN ×2 (02:12→19:36)
[2018-10-17] MEDS: Nitroglycerin 2% Ointment 1 INCH/1 GM Packet TOP SCH ×3 (05:22→17:43)
[2018-10-17] MEDS ORDERED: diphenhydrAMINE 25 MG CAP PO SCH (06:00)
[2018-10-17] MEDS: HumaLOG 300 UNITS/3 ML VIAL SC PRN ×2 (06:05→17:09)
--- NOTE | 2018-10-17 11:15 | PDOC.PN ---
- Subjective Encounter Start Date: 10/17/18 Encounter Start Time: 11:14 Patient seen and examined, no new issues. - Objective Resuscitation Status - Order Detail: 10/12/18 12:00 Resuscitation Status Routine Resuscitation Status: DNAR: NO Resuscitation Discussed with: see out of hospital DNR Vital Signs & Weight: Vital Signs (12 hours) Temp Pulse Resp BP BP BP Pulse Ox 10/17/18 07:59 97.9 F 67 20 133/66 94 L 10/17/18 07:58 94 L 10/17/18 04:00 97.7 F 84 20 161/80 H 93 L 10/17/18 00:00 98.1 F 84 22 H 161/80 H 93 L Weight Weight 116 lb 8 oz Most Recent Monitor Data Heart Rate from ECG 111 NIBP 155/92 NIBP BP-Mean 113 Respiration from ECG 14 SpO2 100 I&O: 10/16/18 10/17/18 10/18/18 06:59 06:59 06:59 Intake Total 360 360 Balance 360 360 Result Diagrams: 10/12/18 05:43 10/15/18 11:45 Additional Labs: Accuchecks 10/17/18 10/16/18 10/16/18 05:26 20:17 16:07 POC Glucose 184 H 220 H 130 H Phys Exam - Physical Examination Constitutional: NAD HEENT: PERRLA, moist MMs, sclera anicteric Neck: no nodes, no JVD, supple Respiratory: no wheezing, no rales, no rhonchi Cardiovascular: RRR, no significant murmur, no rub Gastrointestinal: soft, non-tender, no distention Musculoskeletal: no edema, pulses present Dx/Plan (1) NSTEMI (non-ST elevated myocardial infarction) Code(s): I21.4 - NON-ST ELEVATION (NSTEMI) MYOCARDIAL INFARCTION Status: Acute (2) Subdural hematoma Code(s): S06.5X9A - TRAUM SUBDR HEM W LOC OF UNSP DURATION, INIT Status: Acute (3) Altered mental state Code(s): R41.82 - ALTERED MENTAL STATUS, UNSPECIFIED Status: Acute (4) CHF exacerbation Code(s): I50.9 - HEART FAILURE, UNSPECIFIED Status: Acute (5) COPD exacerbation Code(s): J44.1 - CHRONIC OBSTRUCTIVE PULMONARY DISEASE W (ACUTE) EXACERBATION Status: Acute (6) Chest pain Code(s): R07.9 - CHEST PAIN, UNSPECIFIED Status: Acute - Plan * Patient today is AAO to person and place only, her mental status appears to be dynamic and not stable * cont current tx plan for now * hospice placement pending to [facility] * DC once hospice arrangements made
[2018-10-17] MEDS: Atorvastatin Calcium 40 MG TAB PO SCH (19:37)
[2018-10-17] MEDS: Insulin Glargine 5 UNITS in Pre-Filled Syringe 1 EACH SC SCH (20:55)
[2018-10-18] MEDS: Nitroglycerin 2% Ointment 1 INCH/1 GM Packet TOP SCH ×4 (00:59→16:26)
[2018-10-18 06:29] LABS: Band 1 % (5-11); Hemoglobin 10.6 g/dL (12.0-16.0); Hypochromia SLIGHT = 6-15 cells (100X) (0-5/hpf); Lymphocytes 19 % (21-51); MDiff Complete? YES; Mean Corpuscular Hemoglobin 28.8 pg (27.0-31.0); Mean Corpuscular Volume 89.9 fL (78.0-98.0); Mean Platelet Volume 8.4 fL (7.4-10.4); Monocytes 4 % (0-10); Neutrophil 76 % (42-75); Platelet Count 275 thou/uL (130-400); Platelet Morphology Comment Appears Adequate; RBC Distribution Width 13.5 % (11.5-14.5); Red Blood Cell (RBC) Count 3.67 mill/uL (4.20-5.40); White Blood Cell (WBC) Count 9.9 thou/uL (4.8-10.8)
[2018-10-18 06:37] LABS: Anion Gap 15 mmol/L (10-20); BUN (Urea Nitrogen) 50 mg/dL (9.8-20.1); Calc. Creatinine Clearance 15 mL/min (70-130); Calcium 8.8 mg/dL (7.8-10.44); Carbon Dioxide 16 mmol/L (23-31); Chloride 111 mmol/L (98-107); Estimated GFR-MDRD 16; Glucose 119 mg/dL (80-115); Potassium 4.2 mmol/L (3.5-5.1); Sodium 138 mmol/L (136-145)
[2018-10-18] MEDS: Lorazepam 2 MG/ML VIAL SLOW IVP PRN ×2 (11:25→17:31)
[2018-10-18] MEDS: HumaLOG 300 UNITS/3 ML VIAL SC PRN (12:14)
[2018-10-18] MEDS: Insulin Glargine 5 UNITS in Pre-Filled Syringe 1 EACH SC SCH (19:38)
[2018-10-18] MEDS: Atorvastatin Calcium 40 MG TAB PO SCH (19:43)
[2018-10-19] MEDS: Nitroglycerin 2% Ointment 1 INCH/1 GM Packet TOP SCH ×4 (00:24→17:35)
[2018-10-19] MEDS: Lorazepam 2 MG/ML VIAL SLOW IVP PRN ×2 (07:50→20:22)
--- NOTE | 2018-10-19 08:19 | PDOC.PN ---
- Subjective Encounter Start Date: 10/19/18 Encounter Start Time: 10:00 Subjective: Patient complaining of right leg pain. No other complaints. Oriented to -: person and place only. - Objective Resuscitation Status - Order Detail: 10/12/18 12:00 Resuscitation Status Routine Resuscitation Status: DNAR: NO Resuscitation Discussed with: see out of hospital DNR MAR Reviewed: Yes Vital Signs & Weight: Vital Signs (12 hours) Temp Pulse Resp BP BP Pulse Ox 10/19/18 07:39 98.0 F 92 18 182/86 H 98 10/19/18 04:00 97.8 F 91 18 184/95 H 93 L 10/19/18 00:00 97.8 F 96 20 156/83 H 93 L Weight Weight 116 lb 8 oz Most Recent Monitor Data Heart Rate from ECG 111 NIBP 155/92 NIBP BP-Mean 113 Respiration from ECG 14 SpO2 100 I&O: 10/18/18 10/19/18 10/20/18 06:59 06:59 06:59 Intake Total 1340 1320 Balance 1340 1320 Result Diagrams: 10/18/18 05:48 10/18/18 05:48 Additional Labs: Accuchecks 10/19/18 10/18/18 10/18/18 05:26 21:12 19:29 POC Glucose 121 H 120 H 69 L 10/18/18 10/18/18 16:37 11:59 POC Glucose 95 225 H Phys Exam - Physical Examination Constitutional: NAD HEENT: moist MMs Respiratory: no wheezing, no rales, no rhonchi Cardiovascular: RRR Gastrointestinal: soft, positive bowel sounds Neurological: non-focal, moves all 4 limbs Psychiatric: normal affect Deviation from normal: A&Ox2 Dx/Plan (1) NSTEMI (non-ST elevated myocardial infarction) Code(s): I21.4 - NON-ST ELEVATION (NSTEMI) MYOCARDIAL INFARCTION Status: Acute (2) Subdural hematoma Code(s): S06.5X9A - TRAUM SUBDR HEM W LOC OF UNSP DURATION, INIT Status: Acute (3) Acute metabolic encephalopathy Code(s): G93.41 - METABOLIC ENCEPHALOPATHY Status: Acute (4) CHF exacerbation Code(s): I50.9 - HEART FAILURE, UNSPECIFIED Status: Acute Qualifiers: Heart failure type: combined systolic and diastolic Qualified Code(s): I50.43 - Acute on chronic combined systolic (congestive) and diastolic ( congestive) heart failure Comment: EF 20-25% (5) COPD exacerbation Code(s): J44.1 - CHRONIC OBSTRUCTIVE PULMONARY DISEASE W (ACUTE) EXACERBATION Status: Acute - Plan cont current plan of care awaiting hospice placement either at [facility] or [facility] * . - Discharge Day Encounter end time: 10:10
[2018-10-19] MEDS: HYDROcodone/Acetaminophen 5/325 mg Tablet PO PRN (10:30)
[2018-10-19] MEDS: Atorvastatin Calcium 40 MG TAB PO SCH (20:20)
[2018-10-19] MEDS: Insulin Glargine 5 UNITS in Pre-Filled Syringe 1 EACH SC SCH (21:20)
[2018-10-20] MEDS: Nitroglycerin 2% Ointment 1 INCH/1 GM Packet TOP SCH ×3 (01:02→11:48)
[2018-10-20] MEDS: Lorazepam 2 MG/ML VIAL SLOW IVP PRN ×3 (01:05→21:09)
[2018-10-20] MEDS: HYDROcodone/Acetaminophen 5/325 mg Tablet PO PRN (06:05)
--- NOTE | 2018-10-20 08:39 | PDOC.PN ---
- Subjective Encounter Start Date: 10/20/18 Encounter Start Time: 10:30 Subjective: Patient unchanged. No complaints today. Sleepy and not -: talking today. - Objective Resuscitation Status - Order Detail: 10/12/18 12:00 Resuscitation Status Routine Resuscitation Status: DNAR: NO Resuscitation Discussed with: see out of hospital DNR MAR Reviewed: Yes Vital Signs & Weight: Vital Signs (12 hours) Temp Pulse Resp BP Pulse Ox 10/20/18 07:25 97.4 F L 84 18 192/73 H 98 10/20/18 04:00 97.6 F 88 20 157/72 H 93 L 10/20/18 00:00 97.6 F 80 20 147/79 H 98 10/19/18 21:00 92 L Weight Weight 116 lb 8 oz Most Recent Monitor Data Heart Rate from ECG 111 NIBP 155/92 NIBP BP-Mean 113 Respiration from ECG 14 SpO2 100 I&O: 10/19/18 10/20/18 10/21/18 06:59 06:59 06:59 Intake Total 1320 250 Balance 1320 250 Result Diagrams: 10/18/18 05:48 10/18/18 05:48 Additional Labs: Accuchecks 10/20/18 10/19/18 10/19/18 04:49 19:04 16:33 POC Glucose 173 H 179 H 175 H 10/19/18 11:12 POC Glucose 226 H Phys Exam - Physical Examination Constitutional: NAD HEENT: moist MMs Respiratory: no wheezing, no rales, no rhonchi Cardiovascular: RRR Gastrointestinal: soft, positive bowel sounds Neurological: non-focal Deviation from normal: sleeping, arousable Dx/Plan (1) NSTEMI (non-ST elevated myocardial infarction) Code(s): I21.4 - NON-ST ELEVATION (NSTEMI) MYOCARDIAL INFARCTION Status: Acute (2) Subdural hematoma Code(s): S06.5X9A - TRAUM SUBDR HEM W LOC OF UNSP DURATION, INIT Status: Acute (3) Acute metabolic encephalopathy Code(s): G93.41 - METABOLIC ENCEPHALOPATHY Status: Acute (4) CHF exacerbation Code(s): I50.9 - HEART FAILURE, UNSPECIFIED Status: Acute Qualifiers: Heart failure type: combined systolic and diastolic Qualified Code(s): I50.43 - Acute on chronic combined systolic (congestive) and diastolic ( congestive) heart failure Comment: EF 20-25% (5) COPD exacerbation Code(s): J44.1 - CHRONIC OBSTRUCTIVE PULMONARY DISEASE W (ACUTE) EXACERBATION Status: Acute (6) Acute kidney injury superimposed on chronic kidney disease Code(s): N17.9 - ACUTE KIDNEY FAILURE, UNSPECIFIED; N18.9 - CHRONIC KIDNEY DISEASE, UNSPECIFIED Status: Acute - Plan cont current plan of care [facility] * . - Discharge Day Encounter end time: 10:40
[2018-10-20] MEDS: Atorvastatin Calcium 40 MG TAB PO SCH (21:13)
[2018-10-20] MEDS: Insulin Glargine 5 UNITS in Pre-Filled Syringe 1 EACH SC SCH (21:20)
[2018-10-20] MEDS: Morphine 4 MG/ML VIAL SLOW IVP PRN (23:16)
--- NOTE | 2018-10-21 08:36 | PDOC.PN ---
- Subjective Encounter Start Date: 10/21/18 Encounter Start Time: 12:00 Subjective: Patient not speaking this morning. Refusing to take oral meds today. -: She does this on and off. - Objective Resuscitation Status - Order Detail: 10/12/18 12:00 Resuscitation Status Routine Resuscitation Status: DNAR: NO Resuscitation Discussed with: see out of hospital DNR MAR Reviewed: Yes Vital Signs & Weight: Vital Signs (12 hours) Temp Pulse Resp BP BP Pulse Ox 10/21/18 07:25 97.5 F L 96 18 158/94 H 92 L 10/21/18 01:55 97.8 F 80 18 156/78 H 96 10/20/18 22:28 100 Weight Weight 116 lb 8 oz Most Recent Monitor Data Heart Rate from ECG 111 NIBP 155/92 NIBP BP-Mean 113 Respiration from ECG 14 SpO2 100 I&O: 10/20/18 10/21/18 10/22/18 06:59 06:59 06:59 Intake Total 250 200 Balance 250 200 Result Diagrams: 10/18/18 05:48 10/18/18 05:48 Additional Labs: Accuchecks 10/21/18 10/20/18 10/20/18 05:27 19:28 16:20 POC Glucose 144 H 204 H 166 H 10/20/18 11:20 POC Glucose 158 H Phys Exam - Physical Examination moving around a bit and pushing herself up to top of the bed, no distress HEENT: moist MMs Respiratory: no wheezing, no rales, no rhonchi Cardiovascular: RRR Gastrointestinal: soft, positive bowel sounds Neurological: non-focal Deviation from normal: not verbal today Dx/Plan (1) NSTEMI (non-ST elevated myocardial infarction) Code(s): I21.4 - NON-ST ELEVATION (NSTEMI) MYOCARDIAL INFARCTION Status: Acute (2) Subdural hematoma Code(s): S06.5X9A - TRAUM SUBDR HEM W LOC OF UNSP DURATION, INIT Status: Acute (3) Acute metabolic encephalopathy Code(s): G93.41 - METABOLIC ENCEPHALOPATHY Status: Acute (4) CHF exacerbation Code(s): I50.9 - HEART FAILURE, UNSPECIFIED Status: Acute Qualifiers: Heart failure type: combined systolic and diastolic Qualified Code(s): I50.43 - Acute on chronic combined systolic (congestive) and diastolic ( congestive) heart failure Comment: EF 20-25% (5) COPD exacerbation Code(s): J44.1 - CHRONIC OBSTRUCTIVE PULMONARY DISEASE W (ACUTE) EXACERBATION Status: Acute (6) Acute kidney injury superimposed on chronic kidney disease Code(s): N17.9 - ACUTE KIDNEY FAILURE, UNSPECIFIED; N18.9 - CHRONIC KIDNEY DISEASE, UNSPECIFIED Status: Acute - Plan cont current plan of care DNR and comfort care only, awaiting hospice placement -: BP running high since won't take meds * . - Discharge Day Encounter end time: 12:15
[2018-10-21] MEDS: Lorazepam 2 MG/ML VIAL SLOW IVP PRN (10:11)
[2018-10-21 11:52] VITALS: BMI 20.6
[2018-10-21] MEDS: Morphine 4 MG/ML VIAL SLOW IVP PRN (16:06)
[2018-10-21] MEDS: Atorvastatin Calcium 40 MG TAB PO SCH (22:13)
[2018-10-21] MEDS: Insulin Glargine 5 UNITS in Pre-Filled Syringe 1 EACH SC SCH (22:14)
[2018-10-22] MEDS: Morphine 4 MG/ML VIAL SLOW IVP PRN (00:15)
[2018-10-22 08:28] VITALS: BP 196/83; TEMP 97.9
--- NOTE | 2018-10-23 02:13 | DIS ---
DATE OF ADMISSION: 10/11/2018 DATE OF DISCHARGE: 10/22/2018 DISCHARGE DIAGNOSES: As of the followin. Vbv-WP-[id number] elevation myocardial infarction. 2. Subdural hematoma. 3. Acute metabolic encephalopathy. 4. Congestive heart failure exacerbation. 5. Chronic obstructive pulmonary disease exacerbation. 6. Chronic kidney disease. 7. Peripheral vascular disease. HOSPITAL COURSE: The patient is a 68-year-old female, who initially presented to the hospital with altered mental status. The patient's friends were called for more information since the patient was unable to provide any information. The patient at this time initially was admitted into the [facility] and stroke workup was initiated. She was seen by Neurology and by Cardiology. The patient underwent an echocardiogram, which indicated an EF of 20% to 25%. Cardiology at this time did not think any intervention is needed for this patient given her significant coronary artery disease and also her carotid arterial disease. The patient continued to deteriorate throughout the whole hospital stay. At this time, Hospice was consulted and patient was discharged to inpatient hospice. DISCHARGE MEDICATIONS: As of the followin. Amlodipine 10 mg a day. 2. Aspirin 81 mg daily. 3. Coreg 25 b.i.d. 4. Lasix 40 mg b.i.d. 5. Isosorbide 30 b.i.d. 6. Ranexa 1000 mg p.o. b.i.d. PHYSICAL EXAMINATION: GENERAL: She appears to be drowsy, not very arousable. CV: S1 and S2 present. No murmurs, rubs, or gallops. LUNGS: Clear to auscultation. No rhonchi or wheezes noted. ABDOMEN: Soft, nontender. Bowel sounds are present x2. The patient will be discharged to inpatient hospice and a sign-out was given to Dr. Cuenca at the [facility] for hospice. Job ID: [id number]
== END 2018-10-22 12:45 | disposition hospice, inpatient (51) | DRG 82 ==
LOC: ERS 13:27 → IMCU/EMU 17:21 → ONC 10-14 18:41 → T4-A 10-16 19:41
PROVIDERS: ADMIT Internal Medicine; ATTEND Internal Medicine
DX: S06.5X9A Traumatic subdural hemorrhage with loss of consciousness of unspecified duration, initial encounter (principal); I50.23 Acute on chronic systolic (congestive) heart failure; I21.4 Non-ST elevation (NSTEMI) myocardial infarction; G93.41 Metabolic encephalopathy; J96.01 Acute respiratory failure with hypoxia; J44.1 Chronic obstructive pulmonary disease with (acute) exacerbation; I13.0 Hypertensive heart and chronic kidney disease with heart failure and stage 1 through stage 4 chronic kidney disease, or unspecified chronic kidney disease; N18.4 Chronic kidney disease, stage 4 (severe); E87.2 Acidosis; M62.82 Rhabdomyolysis; N17.9 Acute kidney failure, unspecified; Z66 Do not resuscitate; I25.10 Atherosclerotic heart disease of native coronary artery without angina pectoris; E78.5 Hyperlipidemia, unspecified; E11.22 Type 2 diabetes mellitus with diabetic chronic kidney disease; E11.51 Type 2 diabetes mellitus with diabetic peripheral angiopathy without gangrene; I65.29 Occlusion and stenosis of unspecified carotid artery; E11.65 Type 2 diabetes mellitus with hyperglycemia; D63.1 Anemia in chronic kidney disease; E87.5 Hyperkalemia; Z88.7 Allergy status to serum and vaccine; Z79.4 Long term (current) use of insulin; Z88.8 Allergy status to other drugs, medicaments and biological substances; Z79.899 Other long term (current) drug therapy; R40.2342 Coma scale, best motor response, flexion withdrawal, at arrival to emergency department; R40.2222 Coma scale, best verbal response, incomprehensible words, at arrival to emergency department; R40.2122 Coma scale, eyes open, to pain, at arrival to emergency department
CPT/HCPCS: 36415; 36416; 51701; 70450; 70496; 70498; 71045; 80048; 80053; 80061; 80306; 81003; 81015; 82010; 82550; 82553; 83036; 83605; 83880; 84443; 84484; 85025; 85610; 85730; 87040; 87086; 93005; 93010; 93306; 96361; 96374; 96375; A4353; J0360; J1200; J1630; J1815; J1825; J2060; J2250; J2270; Q0163; Q9966